=== PATIENT | male | born 1955 | race Caucasian/White ===

== ENCOUNTER 2020-06-14 12:54 | Emergency (ER) | payer OTHER, SELFPAY ==
--- NOTE | ~2020-06-14 | XR_ITS ---
EXAMINATION: XR ribs RT 2V INDICATION: Right chest pain TECHNIQUE: 3 views of the right ribs were obtained. COMPARISON: 01/16/2016 FINDINGS: No displaced rib fracture is identified. The right lung is free of acute opacities. There i s no pleural effusion or pneumothorax. Mild osteoarthritis is noted in the right shoulder IMPRESSION: 1. No displaced rib fracture identified. Reviewed, dictated and finalized at location A. IFIED MEDICAL AIDE
--- NOTE | ~2020-06-14 | XR_ITS ---
EXAMINATION: XR elbow RT 2V INDICATION: Right elbow pain TECHNIQUE: Four views of the right elbow are obtained. COMPARISON: None available FINDINGS: There is no fracture, dislocation, or subluxation. The bones, soft tissues, and joint space s are normal. IMPRESSION: 1. No acute osseous abnormality. Reviewed, dictated and finalized at location A. RTISING SALES CONSULTANT
--- NOTE | ~2020-06-14 | XR_ITS ---
EXAMINATION: XR shoulder RT min 2V INDICATION: Right shoulder pain TECHNIQUE: Five views of the right shoulder are submitted. COMPARISON: None FINDINGS: Normal alignment. No fracture. There is mild osteoarthritis of the shoulder. Soft tissues a re unremarkable. IMPRESSION: 1. Mild osteoarthritis. Reviewed, dictated and finalized at location A. ICULTURE SUPERINTENDENT IMPRESSION: 1. Mild osteoarthritis.
[2020-06-14 13:17] VITALS: BP 143/96; PULSE 66; RESP 16; TEMP 37; O2SAT 98
--- NOTE | 2020-06-14 14:05 | ED.FALL ---
HPI - Fall General Chief Complaint: Fall Stated Complaint: fall, arm/shoulder pain Time Seen by Provider: 06/14/20 13:13 Source: patient Mode of arrival: ambulatory Limitations: no limitations History of Present Illness HPI Narrative: 65-year-old with no major medical problems here with complaints of fall but 9 days ago here with complaints of right shoulder, right rib and right elbow pain which has been progressively getting worse from the time of fall. He denies any shortness of breath. He complains of increasing pain with movement in the elbow area mostly Onset (ago): day(s) (9) Fall from: down stairs (#) Fall witnessed: yes, by family Place fall occurred: home Loss of consciousness: none Symptoms prior to fall: none Context: tripped/slipped Location of injury: chest Location of injury - extremities: Right: shoulder and elbow Severity: moderate Severity scale (1-10): 3 Quality: aching Associated symptoms (after fall): denies Related Data Allergies Allergy/AdvReac Type Severity Reaction Status Date / Time NKDA Allergy Mild Uncoded 09/26/07 08:41 Review of Systems Review of Systems: All systems reviewed & are unremarkable except as noted in HPI and below Constitutional: Constitutional: Reports no additional constitutional complaints Eyes: Eyes: Reports no additional eye complaints Cardiovascular: Cardiovascular: Reports no additional cardiovascular complaints Respiratory: Respiratory: Reports no additional respiratory complaints Gastrointestinal: Gastrointestinal: Reports no additional gastrointestinal complaints Musculoskeletal: Musculoskeletal: Reports as per HPI [facility] Family History Family History Grandparent Family history of heart disease in male family member before age 55 Social History Social History Smoking status: Never smoker Alcohol intake: never Exam Narrative: Exam Narrative: GENERAL: Well-appearing, well-nourished, and in no acute distress. HEAD: Normocephalic, atraumatic. EYES: PERRLA and EOMI. ENT: Nares clear NECK: Supple. CHEST: Clear to auscultation. No respiratory distress. HEART: Regular rate and rhythm. No murmur heard. Normal peripheral pulses. ABDOMEN: Soft, nontender, nondistended, normal active bowel sounds. EXTREMITIES: No edema. No obvious evidence of trauma externally normal range of motion in the right shoulder and in the elbow SKIN: Warm, dry, no rash. NEURO: No focal deficits. Alert and oriented x3. PSYCH: Normal mood and affect. Course Vital Signs Vital signs: Vital Signs Temperature 37.0 C 06/14/20 13:17 Pulse Rate 66 06/14/20 13:17 Respiratory Rate 16 06/14/20 13:17 Blood Pressure 143/96 H 06/14/20 13:17 Pulse Oximetry 98 06/14/20 13:17 Temperature 37.0 C 06/14/20 13:17 Pulse Rate 66 06/14/20 13:17 Respiratory Rate 16 06/14/20 13:17 Blood Pressure 143/96 H 06/14/20 13:17 Pulse Oximetry 98 06/14/20 13:17 MDM - Fall MDM Narrative Medical decision making narrative: Inform patient about his x-ray findings. Advised him to continue his home pain medication . Imaging Data Radiologist's impression: ITS Impressions Shoulder X-Ray 06/14/20 13:48 IMPRESSION: 1. Mild osteoarthritis. Elbow X-Ray 06/14/20 13:50 IMPRESSION: 1. No acute osseous abnormality. Ribs X-Ray 06/14/20 13:53 IMPRESSION: 1. No displaced rib fracture identified. Discharge Plan Discharge Clinical Impression: Contusion of right chest wall, Elbow contusion Patient Disposition: Home, Self-Care Condition: Stable Instructions: Antibiotic Form, Contusion in Adults (ED) Additional Instructions: continue home medications, follow with your doctor. Follow-up/Referrals: PHYSICIAN,SECURITY MANAGEMENT SPECIALIST [Primary Care Provider] - Norman Romero MD [Physician] - Time of Disposition: 14:12
== END 2020-06-14 14:20 | disposition home or self-care (01) ==
LOC: ANHED 14:13
PROVIDERS: Emergency Provider Family Medicine; PCP Family Medicine
DX: S50.01XA Contusion of right elbow, initial encounter (principal); S20.211A Contusion of right front wall of thorax, initial encounter; M19.011 Primary osteoarthritis, right shoulder; W10.9XXA Fall (on) (from) unspecified stairs and steps, initial encounter
CPT/HCPCS: 71100; 73030; 73070; 99284

== ENCOUNTER 2023-07-29 08:20 | Emergency (ER) | payer MEDICARE, SELFPAY ==
--- NOTE | 2023-07-29 08:22 | ED.EAR ---
HPI - Ear Problem General Chief complaint: Ear Stated complaint: right ear pain Time Seen by Provider: 07/29/23 08:21 Source: patient Mode of arrival: ambulatory Limitations: no limitations History of Present Illness HPI Narrative: Kenrick is a 68-year-old male patient presenting to the clinic today with complaints of right ear pain times 10 days. He reports pain comes and goes intermittently states of lost time is a dull ache but will become sharp and stabbing at times. Rates his worse pain 7 at 10. No fever or chills. Denies any loss of hearing. Has chronic allergies. Related Data Home Medications Medication Instructions Recorded Confirmed atorvastatin 40 mg tablet 40 mg PO DAILY 08/27/22 07/29/23 lisinopril 20 mg tablet 20 mg PO DAILY 08/27/22 07/29/23 sildenafil 100 mg tablet (Viagra) 100 mg PO DAILY 08/27/22 07/29/23 Allergies Allergy/AdvReac Type Severity Reaction Status Date / Time No Known Allergies Allergy Verified 07/29/23 08:34 Review of Systems Review of Systems: Pertinent positives per HPI. Patient denies any fever, chills, rash, headache, visual changes, dizziness, cough, shortness of breath, chest pain, palpitations, nausea, vomiting, diarrhea, constipation, abdominal pain, or any urinary issues. [facility] Family History Family History Grandparent Family history of heart disease in male family member before age 55 Social History Social History Smoking status: Former smoker Alcohol intake: never Comments At the time of my signature, I reviewed and agree with the nursing past medical, surgical, social, and family history. There is no relevant family history pertinent to the patient complaint. Exam Narrative: General: Well-developed, well nourished, in no apparent distress Head: Normocephalic, atraumatic Eyes: Pupils equally round and reactive to light bilaterally, EOM intact, sclera and conjunctive clear, no discharge, lids normal Ears: Left tMs intact and clear, right TM intact, slightly bulging, fluid noted behind TM ear canals clear, no drainage, grossly hearing normal. Nose: Nares patent, clear discharge, no inflammation, no sinus tenderness. Mouth: Oral pharynx without lesions or masses, good dentition, MMM. Neck: Supple, trachea midline, no enlargement of anterior or posterior cervical nodes, no thyroid masses or goiter palpable. Cardio: Regular rate and rhythm, s1 and s2 normal, no murmur appreciated. Resp: Clear to auscultation bilaterally, no rhonchi, rales, wheezing or rubs Course Course Emergency Course: Portions of this record may have been created with voice recognition software. Level of Care: Express Care Visit Vital Signs Vital signs: Vital signs reviewed Medical Decision Making MDM Narrative Medical decision making narrative: At the time of visit patient is resting comfortably on the exam table. Patient appears to be nontoxic. I suspect patient has serous otitis to the right ear. Prescription for prednisone was sent to the pharmacy. Supportive measures were discussed with the patient and they voiced understanding discharge instructions and agrees to treatment plan. Return precautions reviewed Differential Diagnosis Differential Diagnosis: Otitis media, otitis externa, eustachian tube dysfunction, cerumen impaction, serous otitis, upper respiratory infection Discharge Plan Discharge Clinical Impression: Acute serous otitis media Qualifiers: Laterality: left Recurrence: non-recurrent Qualified Code(s): H65.02 - Acute serous otitis media, left ear Patient Disposition: Home, Self-Care Condition: Stable Instructions: Antibiotic Form, Fluid In The Ear (Serous Otitis Media) (ED) Additional Instructions: Take any prescribed medications only as directed-prednisone Flonase and OTC antihistimine such as Zyrtec/Claritin Tyle
[2023-07-29 08:39] VITALS: BP 153/76; PULSE 84; RESP 16; TEMP 36.3; O2SAT 99
== END 2023-07-29 08:51 | disposition home or self-care (01) ==
PROVIDERS: Emergency Provider Nurse Practitioner Family; PCP Physician Assistant
DX: H65.01 Acute serous otitis media, right ear (principal); Z87.891 Personal history of nicotine dependence
CPT/HCPCS: 99213; G0463

== ENCOUNTER 2023-12-01 15:13 | Outpatient (CLI) | payer MEDICARE, MEDICAID, SELFPAY ==
--- NOTE | 2023-12-01 | ECG_ITS ---
SEE SCANNED COPY FOR CONFIRMED REPORT MTDD
[2023-12-01 15:47] LABS: Anion Gap 9 mmol/L (4-12); Blood Urea Nitrogen 18 mg/dL (9-20); Calcium 9.8 mg/dL (8.4-10.2); Carbon Dioxide 26 mmol/L (22-30); Chloride 102 mmol/L (98-107); Estimated Glomerular Filt Rate > 60; Glucose 111 mg/dL (65-110); Sodium 137 mmol/L (137-145)
== END 2023-12-01 15:14 | disposition home or self-care (01) ==
LOC: ANHLAB 15:16
PROVIDERS: PCP Physician Assistant; Visit Provider Nurse Anesthetist, Certified Registered
DX: Z01.818 Encounter for other preprocedural examination (principal)
CPT/HCPCS: 36415; 80048; 93005

== ENCOUNTER 2024-10-03 02:38 | Day surgery (SDC) | payer MEDICARE, MEDICAID, SELFPAY ==
[2024-09-19 11:11] VITALS: BMI 35.9
--- OUTSIDE RECORDS SUMMARY | 2024-10-03 02:41 | XMS_ITS | Clinical Summary ---
Author Organization [facility] Address [address], [facility] [address] [place] [address] Phone Care Team Providers Care Evp Chief Exploration Officer Name Role Phone Sergio Caballero MD Primary Care Provider Anastasia prince Allergies No known active allergies Medications Multiple Vitamin (MULTI-VITAMIN PO) Take by mouth. Active VITAMIN D PO Take by mouth. Active lisinopril (PRINIVIL, ZESTRIL) 20 MG Tablet Take 20 mg by mouth daily. Active atorvastatin (LIPITOR) 40 MG Tablet Take 40 mg by mouth daily. Active sildenafil citrate (VIAGRA) 100 MG Tablet Take 100 mg by mouth as needed. Active Active Problems No known active problems Family History Relation Name Status Comments Father Mother Social History Tobacco Use Types Packs/Day Years Used Date Smoking Tobacco: Never Smokeless Tobacco: Never Tobacco Cessation:Counseling Given: Not Answered Alcohol Use Standard Drinks/Week Comments Not Currently 0 (1 standard drink = 0.6 oz pur e alcohol) Sex and Gender Information Value Date Recorded Sex Assigned at Not on file Legal Sex Male 1:54 PM CDT Gender Identity Not on file Sexual Orientation Not on file Last Filed Vital Signs Vital Sign Reading Time Taken Comments Blood Pressure 124/80 05/20/2023 9:32 AM CDT Pulse 59 05/20/2023 9:32 AM CDT Temperature 36.4 C (97.5 F) 05/20/2023 9:32 AM CDT Respiratory Rate 18 05/20/2023 9:32 AM CDT Oxygen Saturation 96% 05/20/2023 9:3 2 AM CDT Inhaled Oxygen Concentration - - Weight 116 kg (255 lb 11.2 oz) 05/20/2023 9:32 AM CDT BMI incorrect due to technical error Height 180.3 cm (5' 11 ) 05/20/2023 9:3 2 AM CDT BMI incorrect due to technical error Body Mass Index 35.66 05/20/2023 9:32 AM CDT Plan of Treatment Health Maintenance Due Date Last Done Comments Hepatitis C Virus (HCV) Screening 1957 Colonoscopy 2002 Colorectal Cancer Screening 2002 Cologuard 2007 Immunochemical Fecal Occult Blood 2007 Pneumococcal Immunization (5 0+ years) (1 of 1 - PCV) 2007 Zoster Immunization (1 of 2) 2007 Influenza Immunization (#1) 2024 SARS-COV-2 Immunization ( - season) 2024 08/12/2021, 01/07/2021, 12/09/2020 Respiratory Syncytial Virus (RSV) Immunization (Adult) (1 - 1-dose 75+ series) 01/24/2032 DTaP/Tdap/Td Immunization Discontinued 11/15/2018 TdaP Immunization Completed 11/15/2018 PSA Discussion Completed 05/06/2023 Hepatitis B Immunization Aged Out No longer eligible based on patient's age to complete this topic Meningococcal Immunization (ACWY) Aged Out No longer eligible based on patient's age to complete this topic Rotavirus Immunization Aged Out No lo nger eligible based on patient's age to complete this topic Procedures Procedure Name Priority Date/Time Associated Diagnosis Comments PSA DIAGNOSTIC,TOTAL Routine 05/06/2023 9:18 AM CDT Prostate cancer (HCC) from Last 3 Months or Most Recently Relevant to Health Maintenance Results * (ABNORMAL) PSA DIAGNOSTIC,TOTAL (05/06/2023 9:18 AM CDT) PSA 7.03(H) 0.00 - 4.00 ng/mL [facility] Comment: Jg Paramagnetic Particle Chemiluminescent Immunoassay Method Blood 05/06/2023 9:18 AM CDT Narrative [facility] - 05/06/2023 3:08 PM CDT Release to patient->Immediate us Tomas Mullins MD CHEMISTRY ORDERABLES Final Resul t [facility] [address] [place] [id number], [place] [phone] from Last 3 Months or Most Recently Relevant to Health Maintenance Insurance MEDICARE MEDICAID [place] Care Teams Evp Chief Exploration Officer Relationship Specialty Start Date End Date Sergio Caballero MD PCP - General Family Medicine 04/24/23
--- OUTSIDE RECORDS SUMMARY | 2024-10-03 02:41 | XMS_ITS | Clinical Summary ---
Author Organization [facility] Address [address] [place] [address] Care Team Providers Care Supply Chain Vice President Name Role Phone Stephan Odell DO Primary Care Provider Source Comments [facility],non-owned Affiliates and Associated Physician Practices is amultiple site organization consisting of ambulatory clinics and hospital sitesin [place], [place], [place] and [place]. This disclosure is being madepursuant to the Care Everywhere program and may not contain all information available regarding this patient. Last updated 18.[facility] Allergies No known active allergies Medications * Be aware that medications may not be up to date on this document. Alwaysverify current medications with the patient. Medication Sig Dispensed Refills Start Date End Date Status gabapentin (NEURONTIN) 600 MG tablet Take 600 mg by mouth 3 times daily 12/22/2018 Active meloxicam (MOBIC) 15 MG tabletIndications:DIS H (diffuse idiopathic skeletal hyperostosis),Primary osteoarthritis of both hips,Encounter for long-term (current) use of high-risk medication,Encounter for therapeutic drug monitoring Take 1 tablet by mouth once daily 90 tablet 1 12/23/2018 Active mirabegron ER 24hr (MYRBETRIQ) 50 MG tablet Take 1 tablet by mouth once daily 30 tablet 09/02/2019 Active Additional Information Patient not taking.Reported on 07/08/2021 DULoxetine (CYMBALTA) 60 MG capsule Take 60 mg by mouth once daily Active Active Problems Problem Noted Date Diagnosed Date Liver problem 05/03/2018 Overview (05/12/2018): U[facility] within normallimits Primary osteoarthritis of both hips 03/11/2018 Encounter for long-term (cur rent) use of high-risk medication 03/11/2018 Mid back pain 12/17/2017 Other fatigue 12/17/2017 Chronic pain of left knee 12/17/2017 Polyarthralgia 11/09/2017 Low back pain 11/09/2017 Other chronic pain 11/09/2017 Dorsalgia 11/09/2017 Thoracic radiculopathy 07/22/2017 Family History Medical History Relation Name Comments Cancer - Prostate Paternal Grandfather CAD (Coronary Artery Disease) Paternal Grandmother Relation Name Status Comments Paternal Grandfather Paternal Grandmother Social History Tobacco Use Types Packs/Day Years Used Date Smoking Tobacco: Former Cigarettes Q uit: 08/10/2013 Smokeless Tobacco: Never Tobacco Cessation:Counseling Given: No Alcohol Use Standard Drinks/Week Comments No 0 (1 standard drink = 0.6 oz pur e alcohol) Sex and Gender Information Value Date Recorded Sex Assigned at Not on file Gender Identity Not on file Sexual Orientation Not on file Last Filed Vital Signs Vital Sign Reading Time Taken Comments Blood Pressure 120/75 07/08/2021 9:48 AM SALESFORCE ADMINISTRATOR Pulse 59 07/08/2021 9:48 AM SALESFORCE ADMINISTRATOR Temperature 36.2 C (97.2 F) 10/10/2019 10:09 AM SALESFORCE ADMINISTRATOR Respiratory Rate 14 05/03/2018 3:18 PM CDT Oxygen Saturation 95% 07/08/2021 9:48 AM SALESFORCE ADMINISTRATOR Inhaled Oxygen Concentration - - Weight 95.7 kg (211 lb) 07/08/2021 9:48 AM SALESFORCE ADMINISTRATOR Height 180.3 cm (5' 11 ) 07/08/2021 9:48 AM SALESFORCE ADMINISTRATOR Body Mass Index 29.43 07/08/2021 9:48 AM SALESFORCE ADMINISTRATOR Plan of Treatment Health Maintenance Due Date Last Done Comments COLOGUARD (AGES 45-75) - COL ON CA SCREENING 1957 COLON MONITORING 1957 COLONOSCOPY - COLON CA SCREENING 1957 CT COLONOGRAPHY - COLON CA SCREENING 1957 Colorectal Cancer Screening 1957 FIT - COLON CA SCREENING 1957 FLEX SIG - COLON CA SCREENING 1957 LIPID TESTING 1957 MEDICARE AWV 12 MONTHS 1957 DTAP/TDAP/TD VACCINES (1 - Tdap) 01/24/1976 PNEUMOCOCCAL VACCINE 50+ (1 of 1 - PCV) 2007 ZOSTER VACCINE (1 of 2) 2007 Respiratory Syncytial Virus (RSV) Vaccine Pt: or over 60 yrs (1 - Risk 60-74 years 1-dose series) 2017 AAA SCREENING 2022 COVID-19 VACCINE (1 - 2023-2 5 season) 2024 INFLUENZA VACCINE (#1) 2024 DEPRESSION SCREENING 08/10/2024 HEPATITIS C SCREENING Completed 05/03/2018 , 12/17/2017 HEPATITIS B VACCINE Aged Out No longe r eligible based on patient's age to complete this topic HIB VACCINE Aged Out No longer eligi ble based on patient's age to complete this topic HPV VACCINE Aged Out No longer eligi ble based on patient's age to complete this topic MENINGOCOCCAL (Group B) VACCINE Aged Out No longer eligible b ased on patient's age to complete this topic MENINGOCOCCAL VACCINE Aged Out No yosef rakesh eligible based on patient's age to complete this topic Procedures Procedure Name Priority Date/Time Associated Diagnosis Comments HEPATITIS C RNA QUANTITATIVE Routine 05/03/2018 4:13 PM CDT Hepatitis C antibody test positive from Last 3 Months or Most Recently Relevant to Health Maintenance Results * HEPATITIS C RNA QUANTITATIVE (05/03/2018 4:13 PM CDT) Hepatitis C RNA PCR, Interp Not Detected Not Detected 05/07/2018 8:04 AM CDT [facility] Blood BLOOD SPECIMEN / Unknown Lab Venipuncture / Unknown 05/03/2018 4:13 PM CDT 05/03/2018 4:17 PM CDT Narrative [facility] - 05/07/2018 8:04 AM CDT The Hepatitis C viral (HCV) RNA analysis utilized a serum sample, real-time reverse fur dry cleaner PCR, and is reported as Not Detected, Detected (<12 IU/mL), Quantity (IU/mL) or >100,000,000 IU/mL. The limit of quantitation of the assay is 12 IU/mL (100% of samples with this HCV RNA level were detected). The linear range is from 12 IU/mL to 100,000,000 IU/mL. Values less than 12 IU/mL are reported as Detected (<12 IU/mL). Values greater than 100,000,000 IU/mL are reported as > 100,000,000 IU/mL. The detection/quantitation of HCV RNA in serum is based on the isolation of HCV RNA with reverse fur dry cleaner of genomic HCV RNA followed by real-time PCR in the presence of an unrelated RNA internal control. The internal control ensures that RNA is isolated, and that no general significant inhibitors of the RT-PCR process are present. The analysis was performed using a U.S. FDA approved test methodology ([employer] Real Time HCV). Sarah Christian VETERINARIAN HELPER-FIELD COLLECTOR LAB - CHEMIS TRY ORDERABLES [facility] [address] [phone] from Last 3 Months or Most Recently Relevant to Health Maintenance Care Teams Supply Chain Vice President Relationship Specialty Start Date End Date Stephan Odell DO [facility] - General 05/25/17
--- OUTSIDE RECORDS SUMMARY | 2024-10-03 02:41 | XMS_ITS | Clinical Summary ---
Author Organization [facility] Address [address] [place] [address] Care Team Providers Care Long Filler Cigar Roller Machine Name Role Phone Sergio Caballero MD Primary Care Provider [phone] Allergies No known active allergies Medications MELOXICAM 15 MG tabletIndications :Thoracic radiculopathy TAKE 1 TABLET BY MOUTH ONCE DAILY. APPOINTMENT WITH NEW PROVIDER NEEDED FOR FUTURE REFILLS. CALL [phone] TO SCHEDULE 30 tablet 0 Active gabapentin 300 MG capsuleIndication s:Thoracic radiculopathy TAKE 2 CAPSULES BY MOUTH THREE TIMES DAILY. PT NEEDS AN APPOINTMENT FOR ADDITIONAL REFILLS 180 capsule 0 Active Active Problems Problem Noted Date Diagnosed Date Thoracic radiculopathy 07/22/2017 Immunizations Name Administration Dates Next Due Tdap (Historical Only-select from [facility] glass) 11/15/2018 Family History Medical History Relation Comments Prostate Cancer Paternal Grandfather Heart Attack Paternal Grandmother Relation Status Comments Father Alive Paternal Grandfather Paternal Grandmother Social History Tobacco Use Types Packs/Day Years Used Date Smoking Tobacco: Never Smokeless Tobacco: Never Alcohol Use Standard Drinks/Week Comments No 0 (1 standard drink = 0.6 oz pur e alcohol) Sex and Gender Information Value Date Recorded Sex Assigned at Not on file Legal Sex Male 7:08 PM CDT Gender Identity Not on file Sexual Orientation Not on file Last Filed Vital Signs Vital Sign Reading Time Taken Comments Blood Pressure 122/76 04/26/2019 2:33 PM CDT Pulse 54 04/26/2019 2:33 PM CDT Temperature 36.9 C (98.4 F) 04/26/2019 2:33 PM CDT Respiratory Rate 14 04/26/2019 2:33 PM CDT Oxygen Saturation 97% 04/26/2019 2:33 PM CDT Inhaled Oxygen Concentration - - Weight 105.2 kg (232 lb) 04/26/2019 2:33 PM CDT Height 180.3 cm (5' 11 ) 01/10/2019 1:24 PM CDT Body Mass Index 32.36 01/10/2019 1:24 PM CDT Plan of Treatment Health Maintenance Due Date Last Done Comments Zoster Vaccines (1 of 2) 2007 Pneumococcal Vaccine: 65+ Years (1 of 1 - PCV) 2022 COVID-19 Vaccine (1 - season) 2024 Influenza Adult (#1) 2024 Colorectal Cancer Screening Colonoscopy (10 Years) 10/15/2026 10/14/2016 DTaP, Tdap and Td Vaccines (2 - Td or Tdap) 11/15/2028 11/15/2018 RSV Immunization or 60+ Years (1 - 1-dose 75+ series) 01/24/2032 Hepatitis C Completed 04/05/2018, 03/11, 12/20/2016, Additional history exists Meningococcal B Vaccine Aged Out No l onger eligible based on patient's age to complete this topic Meningococcal Vaccine Aged Out No yosef rakesh eligible based on patient's age to complete this topic RSV Immunizations Under 20 Months Aged Out No longer eligible based on patient's age to complete this topic Procedures Procedure Name Priority Date/Time Associated Diagnosis Comments COLONOSCOPY GENERIC (SCAN ORDER) Routine 10/14/2016 12:00 AM EDUCATION LIAISON HEPATITIS C ANTIBODY Routine 09/24/2016 7:20 AM EDUCATION LIAISON from Last 3 Months or Most Recently Relevant to Health Maintenance Results * COLONOSCOPY (10/14/2016 12:00 AM EDUCATION LIAISON) 10/14/2016 us Documents Scanned SCANNING Final Result [facility] * (ABNORMAL) HEPATITIS C ANTIBODY (09/24/2016 7:20 AM EDUCATION LIAISON) HEPATITIS C AB REACTIVE TESTING PERFORMED AT [facility] [address] [place] [address] SPECIMEN RESPUN RESULTS CONFIRMED-KEE T REPEATED (A) NR [facility] TO EPIC CONVERSION 09/24/2016 7:20 AM EDUCATION LIAISON 09/24/2016 7:20 AM EDUCATION LIAISON Narrative [facility] TO EPIC CONVERSION - 09/25/2016 7:38 PM EDUCATION LIAISON Result Communication: No patient communication needed at this time Stephan Odell DO LABORATORY Final Result [facility] TO EPIC CONVERSION from Last 3 Months or Most Recently Relevant to Health Maintenance Insurance [employer] Care Teams Long Filler Cigar Roller Machine Relationship Specialty Start Date End Date Sergio Caballero MD PCP - General FAMILY PRACTICE 12/14/19
--- OUTSIDE RECORDS SUMMARY | 2024-10-03 02:41 | XMS_ITS | Encounter Summary ---
Author Organization [facility] Address [address] [place] [address] Care Team Providers Care Behavioral Psychologist Name Role Phone Stephan Odell DO Primary Care Provider Reason for Visit * Reason Comments Refill Request Encounter Details Date Type Department Care Team (Late st Contact Info) Description 05/26/2018 Refill [facility] [address] [place] [address] Davy Cary MD [address] [id number] Refill Request Social History Tobacco Use Types Packs/Day Years Used Date Smoking Tobacco: Former Cigarettes Q uit: 08/10/2013 Smokeless Tobacco: Never Alcohol Use Standard Drinks/Week Comments No 0 (1 standard drink = 0.6 oz pur e alcohol) Sex and Gender Information Value Date Recorded Sex Assigned at Not on file Gender Identity Not on file Sexual Orientation Not on file documented as of this encounter Plan of Treatment Not on file documented as of this encounter Visit Diagnoses Not on filedocumented in this encounter Care Teams Behavioral Psychologist Relationship Specialty Start Date End Date Stephan Odell DO PCP - General 05/25/17 documented as of this encounter
--- OUTSIDE RECORDS SUMMARY | 2024-10-03 02:41 | XMS_ITS | Patient Health Summary ---
Author Organization [facility] Address [address] [place] [address] Care Team Providers Care Investment Banking Manager Name Role Phone Stephan Odell Primary Care Provider Note from [facility],non-owned Affiliates and Associated Physician Practices is amultiple site organization consisting of ambulatory clinics and hospital sitesin [place], [place], [place] and [place]. This disclosure is being madepursuant to the Care Everywhere program and may not contain all information available regarding this patient. Last updated 18.[facility] Allergies No known active allergies Medications * Be aware that medications may not be up to date on this document. Alwaysverify current medications with the patient. * gabapentin (NEURONTIN) 600 MG tablet(Started 12/22/2018) Take 600 mg by mouth 3 times daily * meloxicam (MOBIC) 15 MG tablet(Started 12/23/2018) Take 1 tablet by mouth once daily 1 refill remaining * mirabegron ER 24hr (MYRBETRIQ) 50 MG tablet(Started 09/02/2019) Take 1 tablet by mouth once daily * DULoxetine (CYMBALTA) 60 MG capsule Take 60 mg by mouth once daily Active Problems Problem Noted Date Diagnosed Date Liver problem 05/03/2018 Primary osteoarthritis of both hips 03/11/2018 Encounter for long-term (cur rent) use of high-risk medication 03/11/2018 Mid back pain 12/17/2017 Other fatigue 12/17/2017 Chronic pain of left knee 12/17/2017 Polyarthralgia 11/09/2017 Low back pain 11/09/2017 Other chronic pain 11/09/2017 Dorsalgia 11/09/2017 Thoracic radiculopathy 07/22/2017 Social History Tobacco Use Types Packs/Day Years [...] Comments Blood Pressure 120/75 07/08/2021 9:48 AM POLICE LIAISON OFFICER Pulse 59 07/08/2021 9:48 AM POLICE LIAISON OFFICER Temperature 36.2 C (97.2 F) 10/10/2019 10:09 AM POLICE LIAISON OFFICER Respiratory Rate 14 05/03/2018 3:18 PM CDT Oxygen Saturation 95% 07/08/2021 9:48 AM POLICE LIAISON OFFICER Inhaled Oxygen Concentration - - Weight 95.7 kg (211 lb) 07/08/2021 9:48 AM POLICE LIAISON OFFICER Height 180.3 cm (5' 11 ) 07/08/2021 9:48 AM POLICE LIAISON OFFICER Body Mass Index 29.43 07/08/2021 9:48 AM POLICE LIAISON OFFICER Procedures * MRI PELVIS RECTAL PROTOCOL WWO CONT(Performed 07/08/2021) Performed for Prostate cancer (HCC) * PSA SERIAL(Performed 07/08/2021) Performed for Prostate cancer (HCC) * CREATININE - POCT INTERFACED(Performed 07/08/2021) * PATHOLOGY TISSUE(Performed 10/10/2019) Performed for Prostate cancer (HCC) * NV ECHO,TRANSRECTAL(Performed 10/10/2019) Performed for Prostate cancer (HCC) * NV US GUIDED NEEDLE PLACEMENT(Performed 10/10/2019) Performed for Prostate cancer (HCC) * NV BIOPSY OF PROSTATE,NEEDLE/PUNCH(Performed 10/10/2019) Performed for Prostate cancer (HCC) * LAB RESULTS ORDER(Performed 09/29/2019) * PSA SERIAL(Performed 09/28/2019) * PSA SERIAL(Performed 05/27/2019) Performed for Prostate cancer (HCC) * URINALYSIS AUTO - POINT OF CARE (AMB) [facility](Performed 05/27/2019) Performed for UTI symptoms * MRI THORACIC SPINE WO CONTRAST(Performed 04/25/2019) Performed for Mid back pain * MRI PELVIS RECTAL PROTOCOL WWO CONT(Performed 11/09/2018) Performed for Prostate cancer (HCC) * CREATININE BLOOD - POCT (IP) [facility](Performed 11/09/2018) Performed for Prostate cancer (HCC) * PSA SERIAL(Performed 06/28/2018) Performed for Prostate cancer (HCC) * HEPATITIS C RNA QUANTITATIVE(Performed 05/03/2018) Performed for Hepatitis C antibody test positive * COMPREHENSIVE METABOLIC PANEL(Performed 05/03/2018) Performed for Hepatitis C antibody test positive * CBC W AUTO DIFFERENTIAL(Performed 05/03/2018) Performed for Hepatitis C antibody test positive * SCLERODERMA 70 (SCL) ANTIBODY(Performed 12/17/2017) Performed for Arthralgia of hip, unspecified laterality, Mid back pain, Other chronic pain, Myalgia, Other fatigue, Chronic pain of left knee * SS-B (SJOGREN'S) ANTIBODY(Performed 12/17/2017) Performed for Arthralgia of hip, unspecified laterality, Mid back pain, Other chronic pain, Myalgia, Other fatigue, Chronic pain of left knee * SS-A (SJOGREN'S) ANTIBODY(Performed 12/17/2017) Performed for Arthralgia of hip, unspecified laterality, Mid back pain, Other chronic pain, Myalgia, Other fatigue, Chronic pain of left knee * MISHRA (SM) ANTIBODY RAFIQ(Performed 12/17/2017) Performed for Arthralgia of hip, unspecified laterality, Mid back pain, Other chronic pain, Myalgia, Other fatigue, Chronic pain of left knee * MANAGER STATISTICAL PROGRAMMING ANTIBODY(Performed 12/17/2017) Performed for Arthralgia of hip, unspecified laterality, Mid back pain, Other chronic pain, Myalgia, Other fatigue, Chronic pain of left knee * RHEUMATOID FACTOR BLOOD QUANTITATIVE(Performed 12/17/2017) Performed for Arthralgia of hip, unspecified laterality, Mid back pain, Other chronic pain, Myalgia, Other fatigue, Chronic pain of left knee * HLA TYPING B27(Performed 12/17/2017) Performed for Arthralgia of hip, unspecified laterality, Mid back pain, Other chronic pain, Myalgia, Other fatigue, Chronic pain of left knee * HISTONE ANTIBODY(Performed 12/17/2017) Performed for Arthralgia of hip, unspecified laterality, Mid back pain, Other chronic pain, Myalgia, Other fatigue, Chronic pain of left knee * DNA ANTIBODY DS CRITHIDIA TITER(Performed 12/17/2017) Performed for Arthralgia of hip, unspecified laterality, Mid back pain, Other chronic pain, Myalgia, Other fatigue, Chronic pain of left knee * COMPLEMENT C4(Performed 12/17/2017) Performed for Arthralgia of hip, unspecified laterality, Mid back pain, Other chronic pain, Myalgia, Other fatigue, Chronic pain of left knee * COMPLEMENT C3(Performed 12/17/2017) Performed for Arthralgia of hip, unspecified laterality, Mid back pain, Other chronic pain, Myalgia, Other fatigue, Chronic pain of left knee * CHROMATIN ANTIBODY(Performed 12/17/2017) Performed for Arthralgia of hip, unspecified laterality, Mid back pain, Other chronic pain, Myalgia, Other fatigue, Chronic pain of left knee * ADA BLOOD SCREEN W/REFLEX TITER(Performed 12/17/2017) Performed for Arthralgia of hip, unspecified laterality, Mid back pain, Other chronic pain, Myalgia, Other fatigue, Chronic pain of left knee * URIC ACID BLOOD(Performed 12/17/2017) Performed for Arthralgia of hip, unspecified laterality, Mid back pain, Other chronic pain, Myalgia, Other fatigue, Chronic pain of left knee * CK BLOOD(Performed 12/17/2017) Performed for Arthralgia of hip, unspecified laterality, Mid back pain, Other chronic pain, Myalgia, Other fatigue, Chronic pain of left knee * TSH(Performed 12/17/2017) Performed for Arthralgia of hip, unspecified laterality, Mid back pain, Other chronic pain, Myalgia, Other fatigue, Chronic pain of left knee * T4 FREE(Performed 12/17/2017) Performed for Arthralgia of hip, unspecified laterality, Mid back pain, Other chronic pain, Myalgia, Other fatigue, Chronic pain of left knee * HEPATITIS C ANTIBODY(Performed 12/17/2017) Performed for Arthralgia of hip, unspecified laterality, Mid back pain, Other chronic pain, Myalgia, Other fatigue, Chronic pain of left knee * HEPATITIS B SURFACE ANTIGEN W RFLX CONFIRMATION(Performed 12/17/2017) Performed for Arthralgia of hip, unspecified laterality, Mid back pain, Other chronic pain, Myalgia, Other fatigue, Chronic pain of left knee * C-REACTIVE PROTEIN(Performed 12/17/2017) Performed for Arthralgia of hip, unspecified laterality, Mid back pain, Other chronic pain, Myalgia, Other fatigue, Chronic pain of left knee * ERYTHROCYTE SEDIMENTATION RATE(Performed 12/17/2017) Performed for Arthralgia of hip, unspecified laterality, Mid back pain, Other chronic pain, Myalgia, Other fatigue, Chronic pain of left knee * COMPREHENSIVE METABOLIC PANEL(Performed 12/17/2017) Performed for Arthralgia of hip, unspecified laterality, Mid back pain, Other chronic pain, Myalgia, Other fatigue, Chronic pain of left knee * CBC W AUTO DIFFERENTIAL(Performed 12/17/2017) Performed for Arthralgia of hip, unspecified laterality, Mid back pain, Other chronic pain, Myalgia, Other fatigue, Chronic pain of left knee * XR SI JOINTS 3VW OR MORE(Performed 12/17/2017) Performed for Arthralgia of hip, unspecified laterality, Mid back pain, Other chronic pain, Myalgia, Other fatigue, Chronic pain of left knee * XR THORACIC SPINE 3VW(Performed 12/17/2017) Performed for Arthralgia of hip, unspecified laterality, Mid back pain, Other chronic pain, Myalgia, Other fatigue, Chronic pain of left knee * XR PELVIS W BILAT HIP 2VW(Performed 12/17/2017) Performed for Arthralgia of hip, unspecified laterality, Mid back pain, Other chronic pain, Myalgia, Other fatigue, Chronic pain of left knee * XR KNEE RIGHT 2VW OR LESS(Performed 12/17/2017) Performed for Arthralgia of hip, unspecified laterality, Mid back pain, Other chronic pain, Myalgia, Other fatigue, Chronic pain of left knee * XR KNEE LEFT 2VW OR LESS(Performed 12/17/2017) Performed for Arthralgia of hip, unspecified laterality, Mid back pain, Other chronic pain, Myalgia, Other fatigue, Chronic pain of left knee * CYCLIC CITRULLINATED PEPTIDE(CCP) AB IGG(Performed 12/17/2017) Performed for Arthralgia of hip, unspecified laterality, Other chronic pain, Dorsalgia, Mid back pain, Other fatigue, Chronic pain of left knee * PSA SERIAL(Performed 09/04/2017) * MRI PELVIS RECTAL PROTOCOL WWO CONT(Performed 07/30/2017) * CREATININE BLOOD - POCT (IP) [facility](Performed 07/30/2017) * XR CERVICAL SPINE 4 OR 5VW(Performed 06/22/2017) * XR LUMBAR SPINE 4VW OR MORE(Performed 06/22/2017) * MRI CERVICAL SPINE WO CONTRAST(Performed 06/22/2017) * PATHOLOGY/GENETICS HISTORICAL-ONBASE(Performed 02/11/2017) * URINALYSIS - POINT OF CARE (AMB) [facility](Performed 02/09/2017) * PATHOLOGY/GENETICS HISTORICAL-ONBASE(Performed 11/25/2016) * PATHOLOGY/GENETICS HISTORICAL-ONBASE(Performed 11/25/2016) * PATHOLOGY/GENETICS HISTORICAL-ONBASE(Performed 11/25/2016) Results * MRI PELVIS MALE WWO CONTRAST (07/08/2021 9:21 AM POLICE LIAISON OFFICER) Only the most recent of3 resultswithin the time period is included. Anatomical Region Laterality Modality Pelvis Magnetic Resonan ce 07/08/2021 4:55 PM POLICE LIAISON OFFICER Impressions 07/08/2021 5:20 PM POLICE LIAISON OFFICER IMPRESSION: Benign prostatic hyperplasia changes. No suspicious nodules or masses seen in the prostate. PI RADS category 2. Compared with the previous MRI examination there is no significant change is noted in the current study. This report was electronically signed by EJ ADLER MD, FRCR on 07/08/2021 5:20 PM . Narrative 07/08/2021 5:20 PM POLICE LIAISON OFFICER Examination: MRI PELVIS MALE WWO CONTRAST Date: 07/08/2021 9:22 AM Indications: C61: Prostate cancer Comparison: 11/09/2018. Technique: Multiplanar, multisequence imaging of the pelvis in accordance with PI-RADS recommendations before and after intravenous administration of 15 mL of MultiHance at 2 mL/s on a [employer] platform. Dedicated 3 plane 20 cm FOV FSE T2, axial diffusion-weighted imaging with the b values 50, 400 and 1000 and calculated b = 1400 sec/mm2 and ADC map, and axial 3-D dynamic contrast-enhanced T1-weighted imaging with 10 seconds temporal resolution were acquired using 3 mm slice thickness in addition to full pelvis post contrast T1-weighted imaging axial and sagittal sequences. Coronal HASTE and sagittal T2 of entire pelvis and precontrast axial T1-weighted images were also obtained. FINDINGS: Size: 4.6 x 3.6 x 4.0 cm and approximate volume is 35 mL Quality:Images are diagnostic quality Hemorrhage:None Peripheral zone: T2:Linear or wedge-shaped hypointensity or diffuse mild hypointensity, usually indistinct margin DWI:No abnormality on ADC and high b-valueDWI Transitional zone: T2: A mostly encapsulated nodule OR a homogeneous circumscribed nodule without encapsulation. DWI:No abnormality on ADC and high b-valueDWI DCE: No abnormal focal enhancement is seen in the perinephric or transition zone. Lesion: No suspicious nodules identified. Lesion overall PI RADS: 2 Neurovascular bundle:None. Seminal vesicles:Unremarkable. Lymph nodes:No significantly enlarged pelvic lymph nodes. Bones:No focal bony lesions identified. Other pelvic organs:Unremarkable. Others: Small bilateral inguinal lymph nodes noted. Procedure Note Ej Adler MD - 07/08/2021 Examination: MRI PELVIS MALE WWO CONTRAST Date: 07/08/2021 9:22 AM Indications: C61: Prostate cancer Comparison: 11/09/2018. Technique: Multiplanar, multisequence imaging of the pelvis inaccordance with PI-RADS recommendations before and after intravenous administration of 15 mL of MultiHance at 2 mL/s on a [employer] platform. Dedicated 3 plane 20 cm FOV FSE T2, axial diffusion-weighted imaging with the b values 50, 400 and 1000 and calculated b = 1400 sec/mm2 and ADC map, and axial 3-D dynamic contrast-enhanced T1-weighted imaging with 10 seconds temporal resolution were acquired using 3 mm slice thickness in addition to full pelvis post contrast T1-weighted imaging axial and sagittal sequences. Coronal HASTE and sagittal T2 of entire pelvis and precontrast axial T1-weighted images were also obtained. FINDINGS: Size: 4.6 x 3.6 x 4.0 cm and approximate volume is 35 mL Quality:Images are diagnostic quality Hemorrhage:None Peripheral zone: T2:Linear or wedge-shaped hypointensity or diffuse mild hypointensity, usually indistinct margin DWI:No abnormality on ADC and high b-valueDWI Transitional zone: T2: A mostly encapsulated nodule OR a homogeneous circumscribed nodule without encapsulation. DWI:No abnormality on ADC and high b-valueDWI DCE: No abnormal focal enhancement is seen in the perinephric or transition zone. Lesion: No suspicious nodules identified. Lesion overall PI RADS: 2 Neurovascular bundle:None. Seminal vesicles:Unremarkable. Lymph nodes:No significantly enlarged pelvic lymph nodes. Bones:No focal bony lesions identified. Other pelvic organs:Unremarkable. Others: Small bilateral inguinal lymph nodes noted. IMPRESSION: Benign prostatic hyperplasia changes. No suspicious nodules or massesseen in the prostate. PI RADS category 2. Compared with the previous MRI examination there is no significantchange is noted in the current study. This report was electronically signed by EJ ADLER MD, [facility] on 07/08/2021 5:20 PM . Av Marcelo MD MR ORDERABLES * (ABNORMAL) PSA SERIAL (07/08/2021 9:17 AM POLICE LIAISON OFFICER) Only the most recent of5 resultswithin the time period is included. PSA Total 7.4(H) 0.0 - 4.0 ng/mL 07/08/2021 10:49 AM POLICE LIAISON OFFICER [facility] Blood BLOOD SPECIMEN / Unknown Lab Venipuncture / Unknown 07/08/2021 9:17 AM POLICE LIAISON OFFICER 07/08/2021 10:05 AM POLICE LIAISON OFFICER Av Marcelo MD LAB - CHEMISTRY OR DERABLES [facility] [address] [place] [address], [facility] [phone] * CREATININE - POCT INTERFACED (07/08/2021 8:05 AM POLICE LIAISON OFFICER) Pathologist [facility] Creatinine POCT 0.81 0.30 - 1.30 mg/dL 07/08/2021 3:36 PM POLICE LIAISON OFFICER [facility] eGFR >60 >60 mL/min/1.7 3 m2 07/08/2021 3:36 PM [facility] Blood BLOOD SPECIMEN / Unknown 07/08/2021 8:05 AM POLICE LIAISON OFFICER 07/08/2021 3:36 PM POLICE LIAISON OFFICER Av Marcelo MD LAB - POINT OF CAR E ORDERABLES [address] [address], [facility] [phone] * PATHOLOGY TISSUE (10/10/2019 12:44 PM POLICE LIAISON OFFICER) Case Report Surgical Pathology Report Case: [id number] Authorizing Provider: Av Marcelo MD Collected: 10/10/2019 12:44 PM Ordering Location: [facility] Urology Received: 10/10/2019 02:33 PM Pathologist: Tiffany Carias Mai, DO Specimens: A) - Prostate, Left Lateral [place], Biopsy B) - Prostate, Left Lateral Mid, Biopsy C) - Prostate, Left Lateral Base, Biopsy D) - Prostate, Left Mid [place], Biopsy E) - Prostate, Left Mid Mid, Biopsy F) - Prostate, Left Mid Base, Biopsy G) - Prostate, Right Mid [place], Biopsy H) - Prostate, Right Mid Mid, Biopsy I) - Prostate, Right Mid Base, Biopsy J) - Prostate, Right Lateral [place], Biopsy K) - Prostate, Right Lateral Mid, Biopsy L) - Prostate, Right Lateral Base, Biopsy 10/13/2019 7:54 PM POLICE LIAISON OFFICER [facility] Final Diagnosis Prostate, left lateral apex, biopsy (A): - Benign prostatic parenchyma. Prostate, left lateral mid, biopsy (B): - Prostatic adenocarcinoma, [place] score 3+3= 6 (Grade group 1). - 1/1 core involved, approximately 10% of tissue. Prostate, left lateral base, biopsy (C): - Benign prostatic parenchyma. Prostate, left mid apex, biopsy (D): - Benign prostatic parenchyma. Prostate, left mid mid, biopsy (E): - Benign prostatic parenchyma with focal chronic inflammation. Prostate, left mid base, biopsy (F): - Benign prostatic parenchyma. Prostate, right mid apex, biopsy (G): - Benign prostatic parenchyma. Prostate, right mid mid, biopsy (H): - Benign prostatic parenchyma with small focus of high-grade prostatic intraepithelial neoplasia. Prostate, right mid base, biopsy (I): - Benign prostatic parenchyma with focal chronic inflammation. Prostate, right lateral apex, biopsy (J): - Benign prostatic parenchyma. - Benign rectal mucosa. Prostate, right lateral mid, biopsy (K): - Benign prostatic parenchyma with focal chronic inflammation. Prostate, right lateral base, biopsy (L): - Benign prostatic parenchyma. - Benign rectal mucosa. 10/13/2019 7:54 PM [facility] Microscopic Description and Comment Microscopic examination substantiates final diagosis. IHC staining was done at [facility] with adequate controls. Part J shows no overexpression of AMACR and HMWCK highlights the basal cells. VH/DS 10/13/2019 7:54 PM [facility] Clinical History Patient is a 64-year-old male with prior history of cT1c prostate cancer now with elevation of PSA from 5.2 to 8.2 by underwent prostate biopsy. 10/13/2019 7:54 PM [facility] Gross Description The requisition and specimen(s) are identified with the patient's name, Kenrick Wyatt. Received in formalin, specimen A, L LA , is a 1.1 x 0.1 x 0.1 cm magallanes-white core, submitted in toto in cassette A1. Received in formalin, specimen B, LLM , is a 1.5 x 0.1 x 0.1 cm magallanes-white core, submitted in toto in cassette B1. Received in formalin, specimen C, LLB , is a 1.4 x 0.1 x 0.1 cm magallanes-white core, submitted in toto in cassette C1. Received in formalin, specimen D, LMA , is a 2.0 x 0.1 x 0.1 cm magallanes-white core, submitted in toto in cassette D1. Received in formalin, specimen E, LMM , is a 1.3 x 0.1 x 0.1 cm magallanes-white core, submitted in toto in cassette E1. Received in formalin, specimen F, LMB , is a 1.2 x 0.1 x 0.1 cm magallanes-white core, submitted in toto in cassette F1. Received in formalin, specimen G, RMA , is a 1.0 x 0.1 x 0.1 cm magallanes-white core, submitted in toto in cassette G1. Received in formalin, specimen H, RMM , is a 1.0 x 0.1 x 0.1 cm magallanes-white core, submitted in toto in cassette H1. Received in formalin, specimen I, RMB , is a 1.6 x 0.1 x 0.1 cm magallanes-white core, submitted in toto in cassette I1. Received in formalin, specimen J, RLA , is a 1.0 x 0.1 x 0.1 cm magallanes-white core, submitted in toto in cassette J1. Received in formalin, specimen K, RL M , is a 1.5 x 0.1 x 0.1 cm magallanes-white core, submitted in toto in cassette K1. Received in formalin, specimen L, RLB , is a 1.1 x 0.1 x 0.1 cm magallanes-white core, submitted in toto in cassette L1. KK 10/13/2019 7:54 PM [facility] Disclaimer The performance characteristics of all immunohistochemical and indirect immunofluorescence stains (if any) cited in this report were determined by the Histopathology Laboratory of [facility]. Some of these tests were developed by our own laboratory and have not been cleared or approved by the US Food and Drug Administration. The FDA does not require this test to go through premarket FDA review. These tests are used for clinical purposes. They should not be regarded as investigational or for research. This laboratory is certified under the Clinical Laboratory Improvement Amendments (CLIA) as qualified to perform high complexity clinical laboratory testing. This case has been personally reviewed and interpreted by the attending (teaching) pathologist. 10/13/2019 7:54 PM [facility] Embedded Images 10/13/2019 7:54 PM [facility] Pathology/Cytology (Prostate, Left Lateral [place], Biopsy) Collection / Unknown 10/10/2019 12:44 PM POLICE LIAISON OFFICER 10/10/2019 2:33 PM POLICE LIAISON OFFICER Miscellaneous samples (specimen) (Prostate, Left Lateral Mid, Biopsy) Collection / Unknown 10/10/2019 12:44 PM POLICE LIAISON OFFICER 10/10/2019 2:47 PM POLICE LIAISON OFFICER Miscellaneous samples (specimen) (Prostate, Left Lateral Base, Biopsy) 10/10/2019 12:44 PM POLICE LIAISON OFFICER 10/10/2019 2:47 PM POLICE LIAISON OFFICER Miscellaneous samples (specimen) (Prostate, Left Mid [place], Biopsy) 10/10/2019 12:44 PM POLICE LIAISON OFFICER 10/10/2019 2:47 PM POLICE LIAISON OFFICER Miscellaneous samples (specimen) (Prostate, Left Mid Mid, Biopsy) 10/10/2019 12:44 PM POLICE LIAISON OFFICER 10/10/2019 2:47 PM POLICE LIAISON OFFICER Miscellaneous samples (specimen) (Prostate, Left Mid Base, Biopsy) 10/10/2019 12:44 PM POLICE LIAISON OFFICER 10/10/2019 2:47 PM POLICE LIAISON OFFICER Miscellaneous samples (specimen) (Prostate, Right Mid [place], Biopsy) 10/10/2019 12:44 PM POLICE LIAISON OFFICER 10/10/2019 2:47 PM POLICE LIAISON OFFICER Miscellaneous samples (specimen) (Prostate, Right Mid Mid, Biopsy) 10/10/2019 12:44 PM POLICE LIAISON OFFICER 10/10/2019 2:47 PM POLICE LIAISON OFFICER Miscellaneous samples (specimen) (Prostate, Right Mid Base, Biopsy) 10/10/2019 12:44 PM POLICE LIAISON OFFICER 10/10/2019 2:47 PM POLICE LIAISON OFFICER Miscellaneous samples (specimen) (Prostate, Right Lateral [place], Biopsy) 10/10/2019 12:44 PM POLICE LIAISON OFFICER 10/10/2019 2:47 PM POLICE LIAISON OFFICER Miscellaneous samples (specimen) (Prostate, Right Lateral Mid, Biopsy) 10/10/2019 12:44 PM POLICE LIAISON OFFICER 10/10/2019 2:47 PM POLICE LIAISON OFFICER Miscellaneous samples (specimen) (Prostate, Right Lateral Base, Biopsy) 10/10/2019 12:44 PM POLICE LIAISON OFFICER 10/10/2019 2:47 PM POLICE LIAISON OFFICER Av Marcelo MD LAB - PATHOLOGY/CY LUDYOGY ORDERABLES Performing Organization Address [facility]/State/[facility] Co de Phone Number [facility] [address] [phone] * NV BIOPSY OF PROSTATE,NEEDLE/PUNCH, NV US GUIDED NEEDLE PLACEMENT, NV ECHO,TRANSRECTAL (10/10/2019 10:51 AM POLICE LIAISON OFFICER) Narrative Av Marcelo MD - 10/10/2019 10:51 AM POLICE LIAISON OFFICER Av Marcelo MD 10/10/2019 11:28 AM History of Present Illness: The patient is a 64 year old male being seen today as follow-up for Encounter Diagnosis Name Primary? Prostate cancer Yes Additional History: Kenrick Wyatt is a 64 year old male being seen today for follow up regarding cT1c prostate cancer, diagnosed 11/2016, 09/21 cores grade group 1, PSA 5.2. Most recent PSa elevated to 8.2 (see below) Lab Results Component Value Date/Time PSA 8.5 (H) 09/28/2019 12:17 PM PSA 4.7 (H) 05/27/2019 02:36 PM PSA 4.5 (H) 06/28/2018 09:21 AM PSA 4.5 (H) 09/04/2017 10:01 AM Procedure in Detail: Informed consent was obtained and pre-procedure antibiotics were administered. The patient was placed in the left lateral decubitus position (right side up) on the examination table. The patient was then encouraged to assumethe position, allowing the knees to be brought up high toward the chest. Digital rectal examination: small sized prostate, firm over left apex. The ultrasound probe was then inserted per rectum and the prostate visualized. 10 cc of lidocaine was injected at the posterolateral aspects of the prostate bilaterally for analgesia. The prostate was measured at 31 cm3. Following this, a 12 core biopsy of the prostate was performed, obtaining specimens from the medial and lateral apex, mid, and bases bilaterally. The ultrasound probe was then removed and digital tamponade performed. The patient was instructed to remain in the position for 5 minutes post-biopsy to allow for hemostasis. Disposition: The patient is to continue taking their procedural antibiotics as instructed, and will be called in one week to discuss the results of the biopsy. Dr Marcelo was present at the time of procedure. Coiln Dodge MD 10/10/2019 10:54 AM I was present for all moe portions of the procedure. Av Marcelo MD 10/10/2019 11:28 AM Colin Dodge MD PROCEDURE/MINOR SURG ICAL ORDERABLES * LAB RESULTS ORDER (09/29/2019 10:40 AM POLICE LIAISON OFFICER) Narrative 09/29/2019 10:40 AM POLICE LIAISON OFFICER Ordered by an unspecified provider. Scanned Document LAB - THERAPEUTIC DR ALLEN MONITORING ORDERABLES * URINALYSIS AUTO - POINT OF CARE (AMB) [facility] (05/27/2019) Glucose UA - Bilirubin UA POCT - Ketones UA POCT - Specific [place] UA 1.030 Blood Urine POCT - pH UA 6.0 Protein UA - Urobilinogen UA - Nitrite UA - WBC UA - Urine URINE / Unknown 05/27/2019 Jadyn Peterson FLORAL ARRANGER-ASSISTANT FRONT DESK MANAGER LAB - POINT O F CARE ORDERABLES * MRI THORACIC SPINE WO CONTRAST (04/25/2019 2:09 PM CDT) Anatomical Region Laterality Modality Chest Magnetic Resonan ce 04/25/2019 3:49 PM CDT Impressions 04/25/2019 4:00 PM CDT IMPRESSION: 1. Spinal lipomatosis from T1 through T12. There is associated compression of thecal sac at T5-T9 level. 2. No evidence of cord compression or visible neural impingement is identified. This report was electronically signed by FIDEL CORONA on 04/25/2019 4:00 PM . Narrative 04/25/2019 4:00 PM CDT EXAMINATION: MRI THORACIC SPINE WITHOUT CONTRAST HISTORY: Mid thoracic pain. COMPARISON: None. CORRELATION: Thoracic spine radiographs dated 12/17/2017. TECHNIQUE: Multiplanar, multisequence imaging of the thoracic spine was performed without intravenous contrast administration following the standard protocol. FINDINGS: Alignment is stable and remains normal. All the vertebral bodies are normal in heights. No fracture, marrow edema or a malignant marrow replacing process is identified. Scattered small fat-containing hemangiomata are present in T3, T4, T6, T7 and multiple additional segments. Additional heterogeneity of marrow signal intensity is mostly due to benign marrow reconversion. There is a spinal lipomatosis in the dorsal epidural space extending from T1-T2 through the T11-T12 level. The AP diameter of thecal sac is less than 1 cm between T5-T9 suggestive of mild stenosis. The cord is normal in size, contour and signal intensity at all thoracic levels. The counting sequence demonstrates degenerative disc disease of the cervical spine associated with posterior disc osteophyte complexes especially at C4-C5 and C5-C6 without evidence of cord compression. Mild facet osteoarthritis and mild degeneration of the costovertebral articulations are seen at all levels. There is no significant neural foraminal stenosis or visible impingement on the exiting nerves in the neural foramina, throughout the thoracic spine. Procedure Note Fidel Corona MD - 04/25/2019 EXAMINATION: MRI THORACIC SPINE WITHOUT CONTRAST HISTORY: Mid thoracic pain. COMPARISON: None. CORRELATION: Thoracic spine radiographs dated 12/17/2017. TECHNIQUE: Multiplanar, multisequence imaging of the thoracic spine was performed without intravenous contrast administration following the standard protocol. FINDINGS: Alignment is stable and remains normal. All the vertebral bodies are normal in heights. No fracture, marrow edema or a malignant marrow replacing process is identified. Scattered small fat-containing hemangiomata are present in T3, T4, T6, T7 and multiple additional segments. Additional heterogeneity of marrow signal intensity is mostly due to benign marrow reconversion. There is a spinal lipomatosis in the dorsal epidural space extendingfrom T1-T2 through the T11-T12 level. The AP diameter of thecal sac is less than 1 cm between T5-T9 suggestive of mild stenosis. The cord is normal in size, contour and signal intensity at all thoracic levels. The counting sequence demonstrates degenerative disc disease of the cervical spine associated with posterior disc osteophyte complexes especially at C4-C5 and C5-C6 without evidence of cord compression. Mild facet osteoarthritis and mild degeneration of the costovertebral articulations are seen at all levels. There is no significant neural foraminal stenosis or visible impingement on the exiting nerves in the neural foramina, throughout the thoracic spine. IMPRESSION: 1. Spinal lipomatosis from T1 through T12. There is associatedcompression of thecal sac at T5-T9 level. 2. No evidence of cord compression or visible neural impingement is identified. This report was electronically signed by FIDEL CORONA on 04/25/2019 4:00 PM . Job Saunders MD MR ORDERABLES * CREATININE BLOOD - POCT (IP) [facility] (11/09/2018 6:50 PM CDT) Only the most recent of2 resultswithin the time period is included. Creatinine POCT 1.23 0.3 - 1.3 mg/dL [facility] eGFR POCT 60 60 ml/min [facility] Blood BLOOD SPECIMEN / Unknown 11/09/2018 6:50 PM CDT Av Marcelo MD LAB - POINT OF CAR E ORDERABLES [facility] [address] [phone] * HEPATITIS C RNA QUANTITATIVE (05/03/2018 4:13 PM CDT) [facility] Hepatitis C RNA PCR, Interp Not Detected Not Detected 05/07/2018 8:04 AM CDT [facility] Blood BLOOD SPECIMEN / Unknown Lab Venipuncture / Unknown 05/03/2018 4:13 PM CDT 05/03/2018 4:17 PM CDT Narrative [facility] - 05/07/2018 8:04 AM CDT The Hepatitis C viral (HCV) RNA analysis utilized a serum sample, real-time reverse pin or clip fastener PCR, and is reported as Not Detected, [...] the isolation of HCV RNA with reverse pin or clip fastener of genomic HCV RNA followed by real-time PCR in the presence of an unrelated RNA internal control. The internal control ensures that RNA is isolated, and that no general significant inhibitors of the RT-PCR process are present. The analysis was performed using a U.S. FDA approved test methodology (Cast Real Time HCV). Sarah Christian FLORAL ARRANGER-ASSISTANT FRONT DESK MANAGER LAB - CHEMIS TRY ORDERABLES Performing Organization Address City/State/[facility] Co de Phone Number [facility] [address] [phone] * (ABNORMAL) CBC WITH DIFFERENTIAL (05/03/2018 4:13 PM CDT) Only the most recent of2 resultswithin the time period is included. [facility] WBC 8.1 3.5 - 10.5 10 3/uL 05/03/2018 4:33 PM CDT [facility] RBC 4.76 4.30 - 5.70 10 6/uL 05/03/2018 4:33 PM CDT [facility] Hemoglobin 15.0 13.5 - 17.5 g/dL 05/03/2018 4:33 PM [facility] Hematocrit 42.8 39.0 - 50.0 % 05/03/2018 4:33 PM [facility] MCV 89.9 81.0 - 97.0 fL 05/03/2018 4:33 PM [facility] MCH 31.5 28.0 - 34.0 pg 05/03/2018 4:33 PM [facility] MCHC 35.0 32.0 - 36.0 g/dL 05/03/2018 4:33 PM [facility] Platelet Count 186 150 - 400 10 3/uL 05/03/2018 4:33 PM [facility] RDW-SD 41.3 36.0 - 50.0 fL 05/03/2018 4:33 PM [facility] RDW-CV 12.6 11.2 - 14.8 % 05/03/2018 4:33 PM [facility] MPV 10.0 9.3 - 12.8 fL 05/03/2018 4:33 PM [facility] Neutrophils % 57.2 35.0 - 70.0 % 05/03/2018 4:33 PM [facility] Lymphocytes % 28.0 19.7 - 55.1 % 05/03/2018 4:33 PM [facility] Monocytes % 11.1 3.0 - 15.0 % 05/03/2018 4:33 PM [facility] Eosinophils % 3.5 0.0 - 6.0 % 05/03/2018 4:33 PM [facility] Basophil % 0.2 0.0 - 1.5 % 05/03/2018 4:33 PM [facility] Neutrophils Absolute 4.6 1.6 - 7.0 10 3/uL 05/03/2018 4:33 PM [facility] Lymphocyte Absolute 2.3 0.8 - 2.9 10 3/uL 05/03/2018 4:33 PM [facility] Monocytes Absolute 0.89(H) 0.14 - 0.66 10 3/uL 05/03/2018 4:33 PM [facility] Eosinophils Absolute 0.28(H) 0.00 - 0.22 10 3/uL 05/03/2018 4:33 PM [facility] Basophils Absolute 0.02 0.00 - 0.06 10 3/uL 05/03/2018 4:33 PM [facility] Immature Granulocytes % 0.1 0.0 - 1.0 % 05/03/2018 4:33 PM [facility] Blood BLOOD SPECIMEN / Unknown Lab Venipuncture / Unknown 05/03/2018 4:13 PM CDT 05/03/2018 4:18 PM CDT Sarah Christian FLORAL ARRANGER-ASSISTANT FRONT DESK MANAGER LAB - HEMATO LOGY ORDERABLES [facility] [address] [phone] * (ABNORMAL) COMPREHENSIVE METABOLIC PANEL (05/03/2018 4:13 PM CDT) Only the most recent of2 resultswithin the time period is included. BUN 29(H) 7 - 26 mg/dL 05/03/2018 4:38 PM [facility] Creatinine 1.0 0.6 - 1.2 mg/dL 05/03/2018 4:38 PM [facility] Sodium 135(L) 136 - 145 mmol/L 05/03/2018 4:38 PM [facility] Potassium 4.1 3.5 - 4.5 mmol/L 05/03/2018 4:38 PM [facility] Chloride 101 98 - 107 mmol/L 05/03/2018 4:38 PM [facility] CO2 27 22 - 29 mmol/L 05/03/2018 4:38 PM [facility] Glucose 97 70 - 115 mg/dL 05/03/2018 4:38 PM [facility] Calcium 9.5 8.4 - 10.2 mg/dL 05/03/2018 4:38 PM [facility] Protein Total 7.1 6.0 - 8.3 g/dL 05/03/2018 4:38 PM [facility] Albumin 3.9 3.4 - 5.0 g/dL 05/03/2018 4:38 PM CDT [facility] Bilirubin Total 0.5 0.2 - 1.2 mg/dL 05/03/2018 4:38 PM [facility] Alkaline Phosphatase 92 40 - 150 Units/L 05/03/2018 4:38 PM [facility] ALT 14 0 - 55 Units/L 05/03/2018 4:38 PM [facility] AST 15 5 - 34 Units/L 05/03/2018 4:38 PM [facility] Anion Gap 11 8 - 18 05/03/2018 4:38 PM [facility] BUN/Creatinine Ratio 29(H) 7 - 23 05/03/2018 4:38 PM [facility] Osmolality Calculated 286 270 - 300 mOsm/kg 05/03/2018 4:38 PM [facility] Albumin/Globulin Ratio 1.2 1.1 - 2.3 05/03/2018 4:38 PM [facility] eGFR >60 >60 mL/min/1.7 3 m2 05/03/2018 4:38 PM [facility] Blood BLOOD SPECIMEN / Unknown Lab Venipuncture / Unknown 05/03/2018 4:13 PM CDT 05/03/2018 4:18 PM CDT Sarah Christian FLORAL ARRANGER-ASSISTANT FRONT DESK MANAGER LAB - CHEMIS TRY ORDERABLES [address] [phone] * CHROMATIN ANTIBODY (12/17/2017 4:31 PM CDT) Antichromatin Antibodies <0.2 0.0 - 0.9 AI 12/18/2017 12:18 PM CDT [facility] ([facility]) Blood BLOOD SPECIMEN / Unknown Lab Venipuncture / Unknown 12/17/2017 4:31 PM CDT 12/17/2017 4:55 PM CDT Narrative [facility] ([facility]) - 12/18/2017 12:18 PM CDT Performed at: [address] [place] [address] [id number] Hospital Coder: Sha Wilhelm PhD, Phone: [phone] Katarzyna Fuller MD LAB - SEROLOGY ORDERABLES [facility] ([facility]) [address] [place] [address] * DNA ANTIBODY DS CRITHIDIA TITER (12/17/2017 4:31 PM CDT) dsDNA Antibody IgG <1:10 <1:10 2017 10:42 PM CDT [facility] [employer] ([facility]) Comment: INTERPRETIVE INFORMATION: Double-Stranded DNA (dsDNA) Antibody, IgG by IFA (using Crithidia luciliae) Positivity for anti-double stranded DNA (anti-dsDNA) IgG antibody is a diagnostic criterion of systemic lupus erythematosus (SLE). The presence of the anti-dsDNA IgG antibody is identified by IFA titer (Crithidia luciliae indirect fluorescent test [KIAN]). KIAN is highly specific for SLE with a sensitivity of 50-60 percent. Some patients with early or inactive SLE may be positive for anti-dsDNA IgG by KAMERON but negative by KIAN. If the KIAN result is negative but the patient has a positive KAMERON and clinical suspicion remains, consider antinuclear antibody (ADA) testing by IFA. Additional information and recommendations for testing may be found at [email or web address]. Performed by [facility], [address] [place] [address] [email or web address], Bryce Ness MD, Lab. Director Blood BLOOD SPECIMEN / Unknown Lab Venipuncture / Unknown 12/17/2017 4:31 PM CDT 12/17/2017 4:56 PM CDT Katarzyna Fuller MD LAB - SEROLOGY ORDERABLES [employer] ([facility]) [address] * URIC ACID BLOOD (12/17/2017 4:31 PM CDT) Uric Acid 5.2 2.6 - 7.2 mg/dL 12/17/2017 5:24 PM CDT [facility] Blood BLOOD SPECIMEN / Unknown Lab Venipuncture / Unknown 12/17/2017 4:31 PM CDT 12/17/2017 4:55 PM CDT Katarzyna Fuller MD LAB - CHEMISTR Y ORDERABLES Performing Organization Address [facility]/ZIP Co de Phone Number [address] [phone] * MISHRA (SM) ANTIBODY RAFIQ (12/17/2017 4:31 PM CDT) Mishra Antibody 4.0 0.0 - 19.9 Units 12/18/2017 11:58 AM CDT [facility] Comment: RAFIQ Antibody Numeric Result Interpretation: <20.0 Units: Negative 20.0 - 39.0 Units: Weakly Positive >39.0 Units: Positive Blood BLOOD SPECIMEN / Unknown Lab Venipuncture / Unknown 12/17/2017 4:31 PM CDT 12/17/2017 4:56 PM CDT Katarzyna Fuller MD LAB - CHEMISTR Y ORDERABLES Performing Organization Address [facility] Co de Phone Number [address] [phone] * MANAGER STATISTICAL PROGRAMMING ANTIBODY (12/17/2017 4:31 PM CDT) SM/MANAGER STATISTICAL PROGRAMMING Antibody 2.1 0.0 - 19.9 Units 12/18/2017 11:58 AM T [facility] Comment: RAFIQ Antibody Numeric Result Interpretation: <20.0 Units: Negative 20.0 - 39.0 Units: Weakly Positive >39.0 Units: Positive Blood BLOOD SPECIMEN / Unknown Lab Venipuncture / Unknown 12/17/2017 4:31 PM CDT 12/17/2017 4:56 PM CDT Katarzyna Fuller MD LAB - CHEMISTR Y ORDERABLES [address] [phone] * RHEUMATOID FACTOR BLOOD QUANTITATIVE (12/17/2017 4:31 PM CDT) Rheumatoid Factor <15 <30 IU/mL 12/17/2017 5:21 PM CDT [facility] Blood BLOOD SPECIMEN / Unknown Lab Venipuncture / Unknown 12/17/2017 4:31 PM CDT 12/17/2017 4:56 PM CDT Katarzyna Fuller MD LAB - CHEMISTR Y ORDERABLES [address] [phone] * C-REACTIVE PROTEIN (12/17/2017 4:31 PM CDT) Pathologist [facility] C-Reactive Protein <0.5 <=0.5 mg/dL 12/17/2017 5:36 PM CDT [facility] Blood BLOOD SPECIMEN / Unknown Lab Venipuncture / Unknown 12/17/2017 4:31 PM CDT 12/17/2017 4:56 PM CDT Katarzyna Fuller MD LAB [place] [address], [facility] [phone] * ADA BLOOD SCREEN W/REFLEX TITER (12/17/2017 4:31 PM CDT) ADA Negative 12/19/2017 2:09 PM CDT [facility] ([facility]) Comment: Negative <1:80 Borderline 1:80 Positive >1:80 Blood BLOOD SPECIMEN / Unknown Lab Venipuncture / Unknown 12/17/2017 4:31 PM CDT 12/17/2017 4:55 PM CDT Narrative [facility] ([facility]) - 12/19/2017 2:09 PM CDT Performed at: [facility] [id number] Hospital Coder: Sha Wilhelm PhD, Phone: [phone] Katarzyna Fuller MD LAB - CHEMISTR Y ORDERABLES Performing Organization Address [facility] Co de Phone Number [facility] ([facility]) [address] [place] [address], [facility] * HLA TYPING B27 (12/17/2017 4:31 PM CDT) HLA-B27 Negative Negative 12/19/2017 11:02 AM CDT [facility] [employer] ([facility]) Comment: INTERPRETIVE INFORMATION: HLA-B27 HLA-B27 is a serologically defined allele of the human HLA-B locus. The presence of the HLA-B27 antigen is strongly associated with ankylosing spondylitis and related disorders. Test developed and characteristics determined by [facility]. See Compliance Statement B: [employer]/ Performed by [facility], [address] [place] [address] [email or web address], Bryce Ness MD, Lab. Director Blood BLOOD SPECIMEN / Unknown Lab Venipuncture / Unknown 12/17/2017 4:31 PM CDT 12/17/2017 4:55 PM CDT Katarzyna Fuller MD LAB - CHEMISTR Y ORDERABLES Performing Organization Address [facility] Co de Phone Number [facility]) [address] [place] [address] * (ABNORMAL) HISTONE ANTIBODY (12/17/2017 4:31 PM CDT) Anti-Histone Antibody 1.1(H) 0.0 - 0.9 Units 12/22/2017 12:16 PM CDT [facility] ([facility]) Comment: Negative <1.0 Weak Positive 1.0 - 1.5 Moderate Positive 1.6 - 2.5 Strong Positive >2.5 Blood BLOOD SPECIMEN / Unknown Lab Venipuncture / Unknown 12/17/2017 4:31 PM CDT 12/17/2017 4:56 PM CDT Narrative [facility] ([facility]) - 12/22/2017 12:16 PM CDT Performed at: - [address] [id number] Hospital Coder: Chato Gregory MD, Phone: [phone] Katarzyna Fuller MD LAB - CHEMISTR Y ORDERABLES [facility] ([facility]) [address] [place] [address] * SS-B (SJOGRENS'S) ANTIBODY (12/17/2017 4:31 PM CDT) SS-B LA Antibody 11.7 0.0 - 19.9 Units 12/18/2017 11:58 AM CDT [facility] Comment: RAFIQ Antibody Numeric Result Interpretation: <20.0 Units: Negative 20.0 - 39.0 Units: Weakly Positive >39.0 Units: Positive Blood BLOOD SPECIMEN / Unknown Lab Venipuncture / Unknown 12/17/2017 4:31 PM CDT 12/17/2017 4:55 PM CDT Katarzyna Fuller MD LAB - CHEMISTR Y ORDERABLES Performing Organization Address [facility]/ZIP Co de Phone Number [address] [phone] * SS-A (SJOGREN'S) ANTIBODY (12/17/2017 4:31 PM CDT) SS-A (Ro) Antibody 2.5 0.0 - 19.9 Units 12/18/2017 11:58 AM CDT [facility] Comment: RAFIQ Antibody Numeric Result Interpretation: <20.0 Units: Negative 20.0 - 39.0 Units: Weakly Positive >39.0 Units: Positive Blood BLOOD SPECIMEN / Unknown Lab Venipuncture / Unknown 12/17/2017 4:31 PM CDT 12/17/2017 4:55 PM CDT Katarzyna Fuller MD LAB - CHEMISTR Y ORDERABLES [address] [phone] * SCLERODERMA 70 (SCL) ANTIBODY (12/17/2017 4:31 PM CDT) SCL-70 Antibody 2.7 0.0 - 19.9 Units 12/18/2017 11:58 AM CDT [facility] Comment: RAFIQ Antibody Numeric Result Interpretation: <20.0 Units: Negative 20.0 - 39.0 Units: Weakly Positive >39.0 Units: Positive Blood BLOOD SPECIMEN / Unknown Lab Venipuncture / Unknown 12/17/2017 4:31 PM CDT 12/17/2017 4:55 PM CDT Katarzyna Fuller MD LAB - CHEMISTR Y ORDERABLES [address] [phone] * ERYTHROCYTE SEDIMENTATION RATE (12/17/2017 4:31 PM CDT) Pathologist [facility] Erythrocyte Sedimentation Rate Westergren 4 0 - 20 MM/HR 12/17/2017 5:22 PM CDT [facility] Blood BLOOD SPECIMEN / Unknown Lab Venipuncture / Unknown 12/17/2017 4:31 PM CDT 12/17/2017 4:55 PM CDT Katarzyna Fuller MD LAB - HEMATOLO GY ORDERABLES [address] [phone] * COMPLEMENT C4 (12/17/2017 4:31 PM CDT) Complement C4 24 15 - 57 mg/dL 12/17/2017 5:42 PM CDT [facility] Blood BLOOD SPECIMEN / Unknown Lab Venipuncture / Unknown 12/17/2017 4:31 PM CDT 12/17/2017 4:55 PM CDT Katarzyna Fuller MD LAB - SEROLOGY ORDERABLES Performing Organization Address City/[facility]/ZIP Co de Phone Number [address] [phone] * HEPATITIS B SURFACE ANTIGEN W RFLX CONFIRMATION (12/17/2017 4:31 PM CDT) Pathologist [facility] Hepatitis B Virus Surface Antigen Non-reacti ve Non-reacti ve 12/17/2017 5:58 PM CDT [facility] Blood BLOOD SPECIMEN / Unknown Lab Venipuncture / Unknown 12/17/2017 4:31 PM CDT 12/17/2017 4:55 PM CDT Katarzyna Fuller MD LAB - CHEMISTR Y ORDERABLES Performing Organization Address [facility]/ZIP Co de Phone Number [address] [phone] * CK BLOOD (12/17/2017 4:31 PM CDT) Pathologist [facility] CK Total 80 30 - 200 Units/L 12/17/2017 5:24 PM CDT [facility] Blood BLOOD SPECIMEN / Unknown Lab Venipuncture / Unknown 12/17/2017 4:31 PM CDT 12/17/2017 4:55 PM CDT Katarzyna Fuller MD LAB - CHEMISTR Y ORDERABLES Performing Organization Address [facility] [place] [place] [address], [facility] [phone] * TSH (12/17/2017 4:31 PM CDT) Pathologist [facility] TSH 1.174 0.350 - 4.940 uIU/mL 12/17/2017 5:44 PM CDT [facility] Blood BLOOD SPECIMEN / Unknown Lab Venipuncture / Unknown 12/17/2017 4:31 PM CDT 12/17/2017 4:55 PM CDT Katarzyna Fuller MD LAB - CHEMISTR Y ORDERABLES [address] [phone] * T4 FREE (12/17/2017 4:31 PM CDT) [facility] T4 Free 1.0 0.7 - 1.5 ng/dL 12/17/2017 8:13 PM CDT [facility] Blood BLOOD SPECIMEN / Unknown Lab Venipuncture / Unknown 12/17/2017 4:31 PM CDT 12/17/2017 4:56 PM CDT Katarzyna Fuller MD LAB - CHEMISTR Y ORDERABLES Performing Organization Address [facility]/ZIP Co de Phone Number [address] [phone] * (ABNORMAL) HEPATITIS C ANTIBODY (12/17/2017 4:31 PM CDT) [facility] Hepatitis C Antibody Reactive( A) Non-react vincenzo 12/17/2017 6:03 PM CDT [facility] Comment: Hepatitis C Antibody screen is consistent with past or current infection with Hepatitis C Virus. Nucleic Acid Test (MARINO) for Hepatitis C Viral RNA should be performed for initial HCV workup, and for differentiating active/chronic infection from resolved infection. Blood BLOOD SPECIMEN / Unknown Lab Venipuncture / Unknown 12/17/2017 4:31 PM CDT 12/17/2017 4:56 PM CDT Katarzyna Fuller MD LAB - CHEMISTR Y ORDERABLES [address] [phone] * COMPLEMENT C3 (12/17/2017 4:31 PM CDT) [facility] Complement C3 115 82 - 193 mg/dL 12/17/2017 5:42 PM CDT [facility] Blood BLOOD SPECIMEN / Unknown Lab Venipuncture / Unknown 12/17/2017 4:31 PM CDT 12/17/2017 4:55 PM CDT Katarzyna Fuller MD LAB - CHEMISTR Y ORDERABLES [address] [phone] * XR KNEE RIGHT 2VW OR LESS (12/17/2017 4:19 PM CDT) Anatomical Region Laterality Modality Lower Extremity Radiographic Carey ging 12/18/2017 8:19 AM CDT Impressions 12/18/2017 9:21 AM CDT IMPRESSION: 1. Minimal degenerative changes of the hips bilaterally. 2. Borderline narrowing of the medial compartments of the knees. 3. Normal sacroiliac joints. Dictated by Diaz White MD (finance vice president). This report was approved by Diaz White M.D. on 12/18/2017 9:15 AM . I, Dr. LAUREN MORAES M.D. have personally reviewed and interpreted this examination/study. This report was electronically signed by LAUREN MORAES M.D. on 12/18/2017 9:21 AM . Narrative 12/18/2017 9:21 AM CDT EXAMINATION: XR KNEE LEFT 2VW OR LESS, XR SI JOINTS 3VW OR MORE, XR PELVIS W BILAT HIP 2VW, XR KNEE RIGHT 2VW OR LESS HISTORY: M25.559: Arthralgia of hip, unspecified laterality M54.9: Mid back pain G89.29: Other chronic pain M79.1: Myalgia R53.83: Other fatigue M25.562: Chronic pain of left knee G89.29: Chronic pain of left knee COMPARISON: Comparison is made with MR pelvis dated 07/30/2017. FINDINGS: Right knee: The osseous structures are intact and well aligned without acute fracture or dislocation. There is borderline narrowing of the medial compartment. No joint effusion is seen. A patellar enthesophyte is present. Bone density is normal. Left knee: The osseous structures are intact and well aligned without acute fracture or dislocation. There is borderline narrowing of the medial compartment. No joint effusion is seen. Pelvis: No acute fracture is identified. The femoral heads appear well-seated within their respective acetabula. The pubic symphysis is intact. Mild degenerative changes of the hip joints are seen with minimal osteophyte formation but relative preservation of joint spaces. The sacroiliac joints are normal. Bone density is normal. Sacroiliac joints: Joint spaces are preserved. There is no erosion or bone production. Bone density is normal. Procedure Note Lauren Moraes MD - 12/18/2017 EXAMINATION: XR KNEE LEFT 2VW OR LESS, XR SI JOINTS 3VW OR MORE, XRPELVIS W BILAT HIP 2VW, XR KNEE RIGHT 2VW OR LESS HISTORY: M25.559: Arthralgia of hip, unspecified laterality M54.9: Mid back pain G89.29: Other chronic pain M79.1: Myalgia R53.83: Other fatigue M25.562: Chronic pain of left knee G89.29: Chronic pain of left knee COMPARISON: Comparison is made with MR pelvis dated 07/30/2017. FINDINGS: Right knee: The osseous structures are intact and well aligned without acutefracture or dislocation. There is borderline narrowing of the medial compartment. No joint effusion is seen. A patellar enthesophyte is present. Bone density is normal. Left knee: The osseous structures are intact and well aligned without acutefracture or dislocation. There is borderline narrowing of the medial compartment. No joint effusion is seen. Pelvis: No acute fracture is identified. The femoral heads appear well-seated within their respective acetabula. The pubic symphysis is intact. Mild degenerative changes of the hip joints are seen with minimal osteophyte formation but relative preservation of joint spaces. The sacroiliacjoints are normal. Bone density is normal. Sacroiliac joints: Joint spaces are preserved. There is no erosion or bone production. Bone density is normal. IMPRESSION: 1. Minimal degenerative changes of the hips bilaterally. 2. Borderline narrowing of the medial compartments of the knees. 3. Normal sacroiliac joints. Dictated by Diaz White MD (finance vice president). This report was approved by Diaz White M.D. on 12/18/2017 9:15 AM. I, Dr. LAUREN MORAES M.D. have personally reviewed and interpreted this examination/study. This report was electronically signed by LAUREN MORAES M.D. on 12/18/2017 9:21 AM . Katarzyna Fuller MD DIAGNOSTIC CAREY GING ORDERABLES * XR KNEE LEFT 2VW OR LESS (12/17/2017 4:19 PM CDT) Anatomical Region Laterality Modality Lower Extremity Radiographic Carey ging 12/18/2017 8:19 AM CDT Impressions 12/18/2017 9:21 AM CDT IMPRESSION: 1. Minimal degenerative changes of the hips bilaterally. 2. Borderline narrowing of the medial compartments of the knees. 3. Normal sacroiliac joints. Dictated by Diaz White MD (finance vice president). This report was approved by Diaz White M.D. on 12/18/2017 9:15 AM . I, Dr. LAUREN MORAES M.D. have personally reviewed and interpreted this examination/study. This report was electronically signed by LAUREN MORAES M.D. on 12/18/2017 9:21 AM . Narrative 12/18/2017 9:21 AM CDT EXAMINATION: XR KNEE LEFT 2VW OR LESS, XR SI JOINTS 3VW OR MORE, XR PELVIS W BILAT HIP 2VW, XR KNEE RIGHT 2VW OR LESS HISTORY: M25.559: Arthralgia of hip, unspecified laterality M54.9: Mid back pain G89.29: Other chronic pain M79.1: Myalgia R53.83: Other fatigue M25.562: Chronic pain of left knee G89.29: Chronic pain of left knee COMPARISON: Comparison is made with MR pelvis dated 07/30/2017. FINDINGS: Right knee: The osseous structures are intact and well aligned without acute fracture or dislocation. There is borderline narrowing of the medial compartment. No joint effusion is seen. A patellar enthesophyte is present. Bone density is normal. Left knee: The osseous structures are intact and well aligned without acute fracture or dislocation. There is borderline narrowing of the medial compartment. No joint effusion is seen. Pelvis: No acute fracture is identified. The femoral heads appear well-seated within their respective acetabula. The pubic symphysis is intact. Mild degenerative changes of the hip joints are seen with minimal osteophyte formation but relative preservation of joint spaces. The sacroiliac joints are normal. Bone density is normal. Sacroiliac joints: Joint spaces are preserved. There is no erosion or bone production. Bone density is normal. Procedure Note Lauren Moraes MD - 12/18/2017 EXAMINATION: XR KNEE LEFT 2VW OR LESS, XR SI JOINTS 3VW OR MORE, XRPELVIS W BILAT HIP 2VW, XR KNEE RIGHT 2VW OR LESS HISTORY: M25.559: Arthralgia of hip, unspecified laterality M54.9: Mid back pain G89.29: Other chronic pain M79.1: Myalgia R53.83: Other fatigue M25.562: Chronic pain of left knee G89.29: Chronic pain of left knee COMPARISON: Comparison is made with MR pelvis dated 07/30/2017. FINDINGS: Right knee: The osseous structures are intact and well aligned without acutefracture or dislocation. There is borderline narrowing of the medial compartment. No joint effusion is seen. A patellar enthesophyte is present. Bone density is normal. Left knee: The osseous structures are intact and well aligned without acutefracture or dislocation. There is borderline narrowing of the medial compartment. No joint effusion is seen. Pelvis: No acute fracture is identified. The femoral heads appear well-seated within their respective acetabula. The pubic symphysis is intact. Mild degenerative changes of the hip joints are seen with minimal osteophyte formation but relative preservation of joint spaces. The sacroiliacjoints are normal. Bone density is normal. Sacroiliac joints: Joint spaces are preserved. There is no erosion or bone production. Bone density is normal. IMPRESSION: 1. Minimal degenerative changes of the hips bilaterally. 2. Borderline narrowing of the medial compartments of the knees. 3. Normal sacroiliac joints. Dictated by Diaz White MD (finance vice president). This report was approved by Diaz White M.D. on 12/18/2017 9:15 AM. I, Dr. LAUREN MORAES M.D. have personally reviewed and interpreted this examination/study. This report was electronically signed by LAUREN MORAES M.D. on 12/18/2017 9:21 AM . Katarzyna Fuller MD DIAGNOSTIC CAREY GING ORDERABLES * XR PELVIS W BILAT HIP 2VW (12/17/2017 4:19 PM CDT) Anatomical Region Laterality Modality Pelvis, Lower Extremity [facility] 12/18/2017 8:19 AM CDT Impressions 12/18/2017 9:21 AM CDT IMPRESSION: 1. Minimal degenerative changes of the hips bilaterally. 2. Borderline narrowing of the medial compartments of the knees. 3. Normal sacroiliac joints. Dictated by Diaz White MD (finance vice president). This report was approved by Diaz White M.D. on 12/18/2017 9:15 AM . I, Dr. LAUREN MORAES M.D. have personally reviewed and interpreted this examination/study. This report was electronically signed by LAUREN MORAES M.D. on 12/18/2017 9:21 AM . Narrative 12/18/2017 9:21 AM CDT EXAMINATION: XR KNEE LEFT 2VW OR LESS, XR SI JOINTS 3VW OR MORE, XR PELVIS W BILAT HIP 2VW, XR KNEE RIGHT 2VW OR LESS HISTORY: M25.559: Arthralgia of hip, unspecified laterality M54.9: Mid back pain G89.29: Other chronic pain M79.1: Myalgia R53.83: Other fatigue M25.562: Chronic pain of left knee G89.29: Chronic pain of left knee COMPARISON: Comparison is made with MR pelvis dated 07/30/2017. FINDINGS: Right knee: The osseous structures are intact and well aligned without acute fracture or dislocation. There is borderline narrowing of the medial compartment. No joint effusion is seen. A patellar enthesophyte is present. Bone density is normal. Left knee: The osseous structures are intact and well aligned without acute fracture or dislocation. There is borderline narrowing of the medial compartment. No joint effusion is seen. Pelvis: No acute fracture is identified. The femoral heads appear well-seated within their respective acetabula. The pubic symphysis is intact. Mild degenerative changes of the hip joints are seen with minimal osteophyte formation but relative preservation of joint spaces. The sacroiliac joints are normal. Bone density is normal. Sacroiliac joints: Joint spaces are preserved. There is no erosion or bone production. Bone density is normal. Procedure Note Lauren Moraes MD - 12/18/2017 EXAMINATION: XR KNEE LEFT 2VW OR LESS, XR SI JOINTS 3VW OR MORE, XRPELVIS W BILAT HIP 2VW, XR KNEE RIGHT 2VW OR LESS HISTORY: M25.559: Arthralgia of hip, unspecified laterality M54.9: Mid back pain G89.29: Other chronic pain M79.1: Myalgia R53.83: Other fatigue M25.562: Chronic pain of left knee G89.29: Chronic pain of left knee COMPARISON: Comparison is made with MR pelvis dated 07/30/2017. FINDINGS: Right knee: The osseous structures are intact and well aligned without acutefracture or dislocation. There is borderline narrowing of the medial compartment. No joint effusion is seen. A patellar enthesophyte is present. Bone density is normal. Left knee: The osseous structures are intact and well aligned without acutefracture or dislocation. There is borderline narrowing of the medial compartment. No joint effusion is seen. Pelvis: No acute fracture is identified. The femoral heads appear well-seated within their respective acetabula. The pubic symphysis is intact. Mild degenerative changes of the hip joints are seen with minimal osteophyte formation but relative preservation of joint spaces. The sacroiliacjoints are normal. Bone density is normal. Sacroiliac joints: Joint spaces are preserved. There is no erosion or bone production. Bone density is normal. IMPRESSION: 1. Minimal degenerative changes of the hips bilaterally. 2. Borderline narrowing of the medial compartments of the knees. 3. Normal sacroiliac joints. Dictated by Diaz White MD (finance vice president). This report was approved by Diaz White M.D. on 12/18/2017 9:15 AM. I, Dr. LAUREN MORAES M.D. have personally reviewed and interpreted this examination/study. This report was electronically signed by LAUREN MORAES M.D. on 12/18/2017 9:21 AM . Katarzyna Fuller MD DIAGNOSTIC CAREY GING ORDERABLES * XR SI JOINTS 3VW OR MORE (12/17/2017 4:19 PM CDT) Anatomical Region Laterality Modality Pelvis, Lower Extremity Radiogra [facility] 12/18/2017 8:19 AM CDT Impressions 12/18/2017 9:21 AM CDT IMPRESSION: 1. Minimal degenerative changes of the hips bilaterally. 2. Borderline narrowing of the medial compartments of the knees. 3. Normal sacroiliac joints. Dictated by Diaz White MD (finance vice president). This report was approved by Diaz White M.D. on 12/18/2017 9:15 AM . I, Dr. LAUREN MORAES M.D. have personally reviewed and interpreted this examination/study. This report was electronically signed by LAUREN MORAES M.D. on 12/18/2017 9:21 AM . Narrative 12/18/2017 9:21 AM CDT EXAMINATION: XR KNEE LEFT 2VW OR LESS, XR SI JOINTS 3VW OR MORE, XR PELVIS W BILAT HIP 2VW, XR KNEE RIGHT 2VW OR LESS HISTORY: M25.559: Arthralgia of hip, unspecified laterality M54.9: Mid back pain G89.29: Other chronic pain M79.1: Myalgia R53.83: Other fatigue M25.562: Chronic pain of left knee G89.29: Chronic pain of left knee COMPARISON: Comparison is made with MR pelvis dated 07/30/2017. FINDINGS: Right knee: The osseous structures are intact and well aligned without acute fracture or dislocation. There is borderline narrowing of the medial compartment. No joint effusion is seen. A patellar enthesophyte is present. Bone density is normal. Left knee: The osseous structures are intact and well aligned without acute fracture or dislocation. There is borderline narrowing of the medial compartment. No joint effusion is seen. Pelvis: No acute fracture is identified. The femoral heads appear well-seated within their respective acetabula. The pubic symphysis is intact. Mild degenerative changes of the hip joints are seen with minimal osteophyte formation but relative preservation of joint spaces. The sacroiliac joints are normal. Bone density is normal. Sacroiliac joints: Joint spaces are preserved. There is no erosion or bone production. Bone density is normal. Procedure Note Lauren Moraes MD - 12/18/2017 EXAMINATION: XR KNEE LEFT 2VW OR LESS, XR SI JOINTS 3VW OR MORE, XRPELVIS W BILAT HIP 2VW, XR KNEE RIGHT 2VW OR LESS HISTORY: M25.559: Arthralgia of hip, unspecified laterality M54.9: Mid back pain G89.29: Other chronic pain M79.1: Myalgia R53.83: Other fatigue M25.562: Chronic pain of left knee G89.29: Chronic pain of left knee COMPARISON: Comparison is made with MR pelvis dated 07/30/2017. FINDINGS: Right knee: The osseous structures are intact and well aligned without acutefracture or dislocation. There is borderline narrowing of the medial compartment. No joint effusion is seen. A patellar enthesophyte is present. Bone density is normal. Left knee: The osseous structures are intact and well aligned without acutefracture or dislocation. There is borderline narrowing of the medial compartment. No joint effusion is seen. Pelvis: No acute fracture is identified. The femoral heads appear well-seated within their respective acetabula. The pubic symphysis is intact. Mild degenerative changes of the hip joints are seen with minimal osteophyte formation but relative preservation of joint spaces. The sacroiliacjoints are normal. Bone density is normal. Sacroiliac joints: Joint spaces are preserved. There is no erosion or bone production. Bone density is normal. IMPRESSION: 1. Minimal degenerative changes of the hips bilaterally. 2. Borderline narrowing of the medial compartments of the knees. 3. Normal sacroiliac joints. Dictated by Diaz White MD (finance vice president). This report was approved by Diaz White M.D. on 12/18/2017 9:15 AM. I, Dr. LAUREN MORAES M.D. have personally reviewed and interpreted this examination/study. This report was electronically signed by LAUREN MORAES M.D. on 12/18/2017 9:21 AM . Katarzyna Fuller MD DIAGNOSTIC CAREY OLIVIA ORDERABLES * XR THORACIC SPINE 3VW (12/17/2017 4:19 PM CDT) Anatomical Region Laterality Modality Spine Radiographic Carey ging 12/18/2017 7:11 AM CDT Impressions 12/18/2017 12:55 PM CDT IMPRESSION: No acute fracture or subluxation identified. Large osteophytes and mild anterior flowing ossification which may indicate diffuse idiopathic skeletal hyperostosis (DISH) Dictated by Rayshawn Stewart MD (finance vice president). Dr. LAUREN Hallman M.D. have personally reviewed and interpreted this examination/study. This report was electronically signed by LAUREN MORAES M.D. on 12/18/2017 12:55 PM . Narrative 12/18/2017 12:55 PM CDT EXAMINATION: XR THORACIC SPINE 3VW HISTORY: M25.559: Arthralgia of hip, unspecified laterality M54.9: Mid back pain G89.29: Other chronic pain M79.1: Myalgia R53.83: Other fatigue M25.562: Chronic pain of left knee G89.29: Chronic pain of left knee COMPARISON: No prior study is available for comparison. FINDINGS: There are 12 rib-bearing thoracic type vertebral bodies. The vertebral bodies are normally aligned. There is no fracture or compression deformity. There is relative preservation of disc spaces. Large osteophytes are seen on each side of the mid and lower thoracic spine and there is flowing paravertebral ossification anteriorly. Findings may indicate diffuse idiopathic skeletal hyperostosis. Procedure Note Lauren Moraes MD - 12/18/2017 EXAMINATION: XR THORACIC SPINE 3VW HISTORY: M25.559: Arthralgia of hip, unspecified laterality M54.9: Mid back pain G89.29: Other chronic pain M79.1: Myalgia R53.83: Other fatigue M25.562: Chronic pain of left knee G89.29: Chronic pain of left knee COMPARISON: No prior study is available for comparison. FINDINGS: There are 12 rib-bearing thoracic type vertebral bodies. The vertebral bodies are normally aligned. There is no fracture or compression deformity. There is relative preservation of disc spaces. Large osteophytes are seen on each side of the mid and lower thoracic spineand there is flowing paravertebral ossification anteriorly. Findings may indicate diffuse idiopathic skeletal hyperostosis. IMPRESSION: No acute fracture or subluxation identified. Large osteophytes and mild anterior flowing ossification which may indicate diffuse idiopathic skeletal hyperostosis (DISH) Dictated by Rayshawn Stewart MD (finance vice president). Dr. LAUREN Hallman M.D. have personally reviewed and interpreted this examination/study. This report was electronically signed by LAUREN MORAES M.D. on 12/18/2017 12:55 PM . Katarzyna Fuller MD DIAGNOSTIC CAREY GING ORDERABLES * CYCLIC CITRUL PEPTIDE AB IGG (CCP) (12/17/2017 3:55 PM CDT) CCP Antibody IgG 0.5 <5.0 U/mL 12/17/2017 5:53 PM CDT [facility] Blood BLOOD SPECIMEN / Unknown Lab Venipuncture / Unknown 12/17/2017 3:55 PM CDT 12/17/2017 4:56 PM CDT Katarzyna Fuller MD LAB - CHEMISTR Y ORDERABLES Performing Organization Address City/State/[facility] Co de Phone Number [address] [phone] * XR CERVICAL SPINE 4 OR 5VW (06/22/2017 9:21 AM POLICE LIAISON OFFICER) Anatomical Region Laterality Modality Spine Other Impressions 06/22/2017 3:08 PM POLICE LIAISON OFFICER IMPRESSION: No acute fracture or subluxation identified. Multilevel degenerative disease. Dictated by Josefa Aaron MD (finance vice president). IDr. TRAE MD have personally reviewed and interpreted this examination/study. This report was electronically signed by TRAE MUNGUIA MD on 06/22/2017 3:08 PM . Narrative 06/22/2017 3:08 PM POLICE LIAISON OFFICER EXAMINATION: XR SPINE CERVICAL 4 VW MIN HISTORY: neck pain COMPARISON: No prior study is available for comparison. FINDINGS: There are intervertebral disc space narrowing associated with hypertrophic spur formation consistent with moderate degenerative changes at C5-C6, C6-C7, and C7-T1 levels. The vertebral bodies are normally aligned. No acute fracture or compression deformity is identified. The remaining intervertebral disc spaces are maintained. Procedure Note Trae Munguia MD - 11/06/2017 EXAMINATION: XR SPINE CERVICAL 4 VW MIN HISTORY: neck pain COMPARISON: No prior study is available for comparison. FINDINGS: There are intervertebral disc space narrowing associated with hypertrophicspur formation consistent with moderate degenerative changes at C5-C6,C6-C7, and C7- T1 levels. The vertebral bodies are normally aligned. No acute fracture orcompression deformity is identified. The remaining intervertebral discspaces are maintained. IMPRESSION IMPRESSION: No acute fracture or subluxation identified. Multilevel degenerative disease. Dictated by Josefa Aaron MD (finance vice president). Dr. TRAE Hallman MD have personally reviewed and interpreted thisexamination/study. This report was electronically signed by TRAE MUNGUIA MD on06/22/2017 3:08 PM . Nell Mina Samuel PA-C DIAGNOSTIC CAREY GING ORDERABLES * XR LUMBAR SPINE 4VW OR MORE (06/22/2017 9:21 AM POLICE LIAISON OFFICER) Anatomical Region Laterality Modality Spine Other Impressions 06/22/2017 3:10 PM POLICE LIAISON OFFICER IMPRESSION: Mild to moderate degenerative changes. Dictated by Josefa Aaron MD (finance vice president). Dr. TRAE Hallman MD have personally reviewed and interpreted this examination/study. This report was electronically signed by TRAE MUNGUIA MD on 06/22/2017 3:10 PM . Narrative 06/22/2017 3:10 PM POLICE LIAISON OFFICER EXAMINATION: XR SPINE LUMBAR 4 VW MIN HISTORY: back pain COMPARISON: No prior study is available for comparison. FINDINGS: There is no fracture or subluxation. There is multilevel degenerative disc disease characterized by large endplate osteophytes and endplate sclerosis, although the disc spaces themselves are relatively preserved. There is facet degeneration in the lower lumbar spine. Vascular calcification is noted. Procedure Note Trae Munguia MD - 11/06/2017 EXAMINATION: XR SPINE LUMBAR 4 VW MIN HISTORY: back pain COMPARISON: No prior study is available for comparison. FINDINGS: There is no fracture or subluxation. There is multilevel degenerative discdisease characterized by large endplate osteophytes and endplatesclerosis, although the disc spaces themselves are relatively preserved.There is facet degeneration in the lower lumbar spine. Vascular calcification is noted. IMPRESSION IMPRESSION: Mild to moderate degenerative changes. Dictated by Josefa Aaron MD (finance vice president). Dr. TRAE Hallman MD have personally reviewed and interpreted thisexamination/study. This report was electronically signed by TRAE MUNGUIA MD on06/22/2017 3:10 PM . Nell Samuel PA-C DIAGNOSTIC CAREY GING ORDERABLES * MRI CERVICAL SPINE WO CONTRAST (06/22/2017 7:10 AM POLICE LIAISON OFFICER) Anatomical Region Laterality Modality Pelvis Other Impressions 06/22/2017 10:57 AM POLICE LIAISON OFFICER IMPRESSION: 1. Multilevel degenerative disc and joint disease in the cervical spine as described above, most pronounced at C6-7, without central canal stenosis. This report was approved by Sachi Mcmanus M.D. on 06/22/2017 10:[address] DOMI Hallman M.D. have personally reviewed and interpreted this examination/study. This report was electronically signed by DOMI STAPLETON M.D. on 06/22/2017 10:57 AM . Narrative 06/22/2017 10:57 AM POLICE LIAISON OFFICER This is a summary report. The complete report is available in the patient's medical record. If you cannot access the medical record, please contact the sending organization for a detailed fax or copy. EXAMINATION: Magnetic resonance imaging (MRI) of the cervical spine without contrast HISTORY: Neck pain TECHNIQUE: MRI of the cervical spine was performed without contrast according to standard protocol. FINDINGS: No prior study is available for comparison at the time of this dictation. There is gentle kyphosis of the lower cervical spine. Vertebral bodies are normal in height without evidence of compression fractures. Modic type II endplate change is present at the inferior endplate of C6 and superior endplate of C7. Small hemangiomas are noted in the C3 and C5 vertebral bodies. Other than atlantoaxial osteoarthritis, the craniocervical junction and visualized portions of the posterior fossa appear normal. The spinal cord appears normal. There is multilevel degenerative disc disease with disc bulge, height loss, and desiccation, most pronounced at C6-7. No soft tissue abnormality is identified. Normal flow voids are identified in the vertebral arteries. C2-3: There is no disc bulge. There is no central canal stenosis. There is mild bilateral facet osteoarthritis. There is no uncovertebral joint osteoarthritis. There is no neural foraminal stenosis. C3-4: There is mild disc bulge. There is no central canal stenosis. There is mild bilateral facet osteoarthritis. There is no uncovertebral joint osteoarthritis. There is mild left neural foraminal stenosis. C4-5: There is mild disc bulge. There is no central canal stenosis. There is mild bilateral facet osteoarthritis. There is mild bilateral uncovertebral joint osteoarthritis. There is mild bilateral neural foraminal stenosis. C5-6: There is diffuse disc bulge. There is no central canal stenosis. There is mild bilateral facet osteoarthritis. There is mild bilateral uncovertebral joint osteoarthritis. There is mild bilateral neural foraminal stenosis. C6-7: There is diffuse disc bulge. There is no central canal stenosis. There is mild bilateral facet osteoarthritis. There is moderate bilateral uncovertebral joint osteoarthritis. There is moderate bilateral neural foraminal stenosis. C7-T1: There is no disc bulge. There is no central canal stenosis. There is mild bilateral facet osteoarthritis. There is no uncovertebral joint osteoarthritis. There is no neural foraminal stenosis. Procedure Note Domi Stapleton MD - 11/06/2017 This is a summary report. The complete report is available in thepatient's medical record. If you cannot access the medical record, pleasecontact the sending organization for a detailed fax or copy. EXAMINATION: Magnetic resonance imaging (MRI) of the cervical spinewithout contrast HISTORY: Neck pain TECHNIQUE: MRI of the cervical spine was performed without contrastaccording to standard protocol. FINDINGS: No prior study is available for comparison at the time of thisdictation. There is gentle kyphosis of the lower cervical spine. Vertebral bodies arenormal in height without evidence of compression fractures. Modic type IIendplate change is present at the inferior endplate of C6 and superiorendplate of C7. Small hemangiomas are noted in the C3 and C5 vertebral bodies. Other than atlantoaxialosteoarthritis, the craniocervical junction and visualized portions of theposterior fossa appear normal. The spinal cord appears normal. There ismultilevel degenerative disc disease with disc bulge, height loss, and desiccation, most pronounced at C6-7. Nosoft tissue abnormality is identified. Normal flow voids are identified inthe vertebral arteries. C2-3: There is no disc bulge. There is no central canal stenosis. There ismild bilateral facet osteoarthritis. There is no uncovertebral jointosteoarthritis. There is no neural foraminal stenosis. C3-4: There is mild disc bulge. There is no central canal stenosis. Thereis mild bilateral facet osteoarthritis. There is no uncovertebral jointosteoarthritis. There is mild left neural foraminal stenosis. C4-5: There is mild disc bulge. There is no central canal stenosis. Thereis mild bilateral facet osteoarthritis. There is mild bilateraluncovertebral joint osteoarthritis. There is mild bilateral neuralforaminal stenosis. C5-6: There is diffuse disc bulge. There is no central canal stenosis.There is mild bilateral facet osteoarthritis. There is mild bilateraluncovertebral joint osteoarthritis. There is mild bilateral neuralforaminal stenosis. C6-7: There is diffuse disc bulge. There is no central canal stenosis.There is mild bilateral facet osteoarthritis. There is moderate bilateraluncovertebral joint osteoarthritis. There is moderate bilateral neuralforaminal stenosis. C7-T1: There is no disc bulge. There is no central canal stenosis. Thereis mild bilateral facet osteoarthritis. There is no uncovertebral jointosteoarthritis. There is no neural foraminal stenosis. IMPRESSION IMPRESSION: 1. Multilevel degenerative disc and joint disease in the cervical spine asdescribed above, most pronounced at C6-7, without central canalstenosis. This report was approved by Sachi Mcmanus M.D. on 06/22/2017 10:11 AM . I, Dr. DOMI STAPLETON M.D. have personally reviewed and interpreted thisexamination/study. This report was electronically signed by DOMI STAPLETON M.D. on 06/22/201710:57 AM . Nell Samuel PA-C MR ORDERABLES * PATHOLOGY/GENETICS HISTORICAL-ONBASE (02/11/2017) Only the most recent of4 resultswithin the time period is included. 02/11/2017 Historical Provider LAB - CHEMISTRY O RDERABLES [facility] [address] [place] [address], [facility] * URINALYSIS - POINT OF CARE (AMB) [facility] (02/09/2017 8:53 AM CDT) Glucose UA neg [facility] Bilirubin UA POCT neg [facility] Ketones UA POCT neg [facility] Specific [place] UA 1.030 [facility] Blood Urine POCT [facility] pH UA 5.0 [facility] Protein UA neg [facility] Urobilinogen UA neg [facility] Nitrite UA neg [facility] WBC UA neg [facility] Urine specimen (specimen) 02/09/2017 8:53 AM CDT Davy Cary MD LAB - POINT OF CARE ORDERABLES [facility] Care Teams Investment Banking Manager Relationship Specialty Start Date End Date Stephan Odell DO PCP - General 05/25/17
--- OUTSIDE RECORDS SUMMARY | 2024-10-03 02:41 | XMS_ITS | Referral Summary ---
Author Organization [facility] [employer] Address [address] [place] [address] Care Team Providers Care Biofuels Product Development Manager Name Role Phone Stephan Odell DO Primary Care Provider Source Comments [facility] [employer],non-owned Affiliates and Associated Physician Practices is amultiple site organization consisting of ambulatory clinics and hospital sitesin [place], [place], [place] and [place]. This disclosure is being madepursuant to the Care Everywhere program and may not contain all information available regarding this patient. Last updated 18.[facility] [employer] Allergies No known active allergies Medications * [...] problem 05/03/2018 Overview (05/12/2018): U[facility] at [facility] within normallimits Primary osteoarthritis of both hips [...] Comments Blood Pressure 120/75 07/08/2021 9:48 AM PRODUCTION MECHANIC Pulse 59 07/08/2021 9:48 AM PRODUCTION MECHANIC Temperature 36.2 C (97.2 F) 10/10/2019 10:09 AM PRODUCTION MECHANIC Respiratory Rate 14 05/03/2018 3:18 PM CDT Oxygen Saturation 95% 07/08/2021 9:48 AM PRODUCTION MECHANIC Inhaled Oxygen Concentration - - Weight 95.7 kg (211 lb) 07/08/2021 9:48 AM PRODUCTION MECHANIC Height 180.3 cm (5' 11 ) 07/08/2021 9:48 AM PRODUCTION MECHANIC Body Mass Index 29.43 07/08/2021 9:48 AM PRODUCTION MECHANIC Plan of Treatment Not on file Procedures Procedure Name Priority Date/Time Associated Diagnosis Comments HEPATITIS C RNA QUANTITATIVE Routine 05/03/2018 4:13 PM CDT Hepatitis C antibody test positive from Last 3 Months or Most Recently Relevant to Health Maintenance Results * HEPATITIS C RNA QUANTITATIVE (05/03/2018 4:13 PM CDT) Hepatitis C RNA PCR, Interp Not Detected Not Detected 05/07/2018 8:04 AM CDT [facility] Blood BLOOD SPECIMEN / Unknown Lab Venipuncture / Unknown 05/03/2018 4:13 PM CDT 05/03/2018 4:17 PM CDT Narrative [facility] - 05/07/2018 8:04 AM CDT The Hepatitis C viral (HCV) RNA analysis utilized a serum sample, real-time reverse physician credentialing specialist PCR, and is reported as Not Detected, [...] the isolation of HCV RNA with reverse physician credentialing specialist of genomic HCV RNA followed by real-time PCR in the presence of an unrelated RNA internal control. The internal control ensures that RNA is isolated, and that no general significant inhibitors of the RT-PCR process are present. The analysis was performed using a U.S. FDA approved test methodology ([employer] Real Time HCV). Sarah Christian APRN-FORKLIFT MATERIAL HANDLER LAB - CHEMIS TRY ORDERABLES [facility] [address] [facility] [phone] from Last 3 Months or Most Recently Relevant to Health Maintenance Care Teams Biofuels Product Development Manager Relationship Specialty Start Date End Date Stephan Odell DO PCP - General 05/25/17
[2024-10-03 08:17] VITALS: BP 134/75; PULSE 92; RESP 20; TEMP 36.2; O2SAT 99
[2024-10-03] MEDS: LACTATED RINGERS 1,000 ML 150 ML IV CONT (08:28)
--- NOTE | 2024-10-03 08:37 | WPDANESEPPF ---
Anes - Initial Pre Proc Eval Procedure: Operation Date: 10/03/24 09:30 Proposed Procedures p Screening Colonoscopy - Xavier Fuller DO Date/Time: 10/03/24 08:37 Surgeon: Xavier Fuller DO Pre Op Diagnosis: Screening for malignant neoplasm of colon Patient Data Age: 69 Gender: M Height: 1.78 m Weight: 111.8 kg Last Vital Signs Temp 97.1 F L 10/03/24 08:17 Pulse 92 10/03/24 08:17 Resp 20 10/03/24 08:17 BP 134/75 10/03/24 08:17 Pulse Ox 99 10/03/24 08:17 O2 Del Method Room Air 10/03/24 08:17 Allergies Allergy/AdvReac Type Severity Reaction Status Date / Time No Known Allergies Allergy Verified 10/03/24 08:14 Home Medications ?Medication ?Instructions ?Recorded ?Confirmed ?Type atorvastatin 40 mg tablet 40 mg PO DAILY 08/27/22 10/03/24 History fluticasone furoate 50 1 inh inhalation Q24H 09/08/24 10/03/24 History mcg/actuation blister powder for inhalation sildenafil 100 mg tablet (Viagra) 100 mg PO DAILY PRN sexual activity 09/08/24 10/03/24 History amitriptyline 50 mg tablet 50 mg PO QHS #90 tabs 09/12/24 10/03/24 Rx loratadine 10 mg tablet 10 mg PO Q24H 09/19/24 10/03/24 History losartan 100 mg tablet 100 mg PO DAILY #90 tabs 09/27/24 10/03/24 Rx Patient hx anesthesia problems: none Family hx anesthesia problems: none Results Review: All pre-operative results and documents have been reviewed as part of the pre-operative evaluation. [facility] Past Medical History Medical History Chronic ear infection Hemorrhoids Edema, spinal cord Hepatitis Arthritis Allergies Surgical History Surgical History H/O prostate biopsy Family History Family History Grandparent Family history of heart disease in male family member before age 55 Grandparent Heart problem Malignant neoplasm of prostate Social History Social History Smoking status: Never smoker Alcohol intake: current Drinks per week: 2 Alcohol use details: 5-7 drinks per week Substance use: former Substance use type: marijuana Do You Feel Safe in your Home?: Yes Lack of Transportation: No Lack of Food: Never True Current Housing: I Have Housing Concerned About Future Housing: No Difficulty Paying Gas/Electric Bills: YES Difficulty Paying for Meds: No Currently Unemployed: No Education: Bachelor's Degree Difficulty w/ Childcare or Family Care: No Living arrangements: alone Anes - Eval Final PreProcedure Day of Procedure 10/03/24 08:37 Patient weight: obese Lungs: normal air movement Airway: Mallampati scale and special considerations (Missing tooth bottom L area. ) Neurological: alert and oriented Last oral intake: >/= 8 hours ASA classification: III Emergent: no Anesthetic plan: proceed Anesthesia type and monitoring: general GIVS and standard monitoring Results Review: All pre-operative results and documents have been reviewed as part of the pre-operative evaluation. HTN, hyperlipidemia, hx Hep C treated effectively, BMI 35, prostate CA. Pt does aerobic exercise 5 x weekly, no cp or sob. Informed Consent: The patient's anesthetic plan and its attendant risks and benefits were discussed with the patient/family/POA. Questions were solicited and answers provided to the satisfaction of the patient/family/POA.
--- NOTE | 2024-10-03 09:15 | P.HP_ITS ---
H&P: HPI History of Present Illness Date/Time: 10/03/24 09:15 Chief Complaint: screening for colorectal cancer Narrative: this is a 69-year-old man who presents for colonoscopy. His last colonoscopy was 10 years ago. He denies any hematochezia or melena. He denies family history of colon cancer. Review of Systems Review of Systems: All systems reviewed & are unremarkable except as noted in HPI and below Constitutional: Constitutional: Denies chills, Denies fever(s), Denies headache(s) and Denies weight loss Eyes: Eyes: Denies change in vision ENT: Denies dizziness, Denies headache(s), Denies neck mass and Denies throat swelling Cardiovascular: Cardiovascular: Denies chest pain, Denies lightheadedness and Denies dyspnea Respiratory: Respiratory: Denies cough, Denies dyspnea and Denies wheezing Gastrointestinal: Gastrointestinal: Denies abdominal pain, Denies change in bowel habits, Denies nausea and Denies vomiting Genitourinary: Genitourinary: Denies hematuria and Denies dysuria Musculoskeletal: Musculoskeletal: Reports as per HPI Integumentary/Breasts: Skin/Breast: Reports as per HPI Neurologic: Denies dizziness and Denies headache(s) Allergic/Immunologic: Allergic/Immunologic: Denies throat swelling and Denies wheezing [facility] Past Medical History Medical History Chronic ear infection Hemorrhoids Edema, spinal cord Hepatitis Arthritis Allergies Surgical History Surgical History H/O prostate biopsy Family History Family History Grandparent Family history of heart disease in male family member before age 55 Grandparent Heart problem Malignant neoplasm of prostate Social History Social History Smoking status: Never smoker Alcohol intake: current Drinks per week: 2 Alcohol use details: 5-7 drinks per week Substance use: former Substance use type: marijuana Do You Feel Safe in your Home?: Yes Lack of Transportation: No Lack of Food: Never True Current Housing: I Have Housing Concerned About Future Housing: No Difficulty Paying Gas/Electric Bills: YES Difficulty Paying for Meds: No Currently Unemployed: No Education: Bachelor's Degree Difficulty w/ Childcare or Family Care: No Living arrangements: alone Meds Home Medications and Allergies Home Medications ?Medication ?Instructions ?Recorded ?Confirmed ?Type atorvastatin 40 mg tablet 40 mg PO DAILY 08/27/22 10/03/24 History fluticasone furoate 50 1 inh inhalation Q24H 09/08/24 10/03/24 History mcg/actuation blister powder for inhalation sildenafil 100 mg tablet (Viagra) 100 mg PO DAILY PRN sexual activity 09/08/24 10/03/24 History amitriptyline 50 mg tablet 50 mg PO QHS #90 tabs 09/12/24 10/03/24 Rx loratadine 10 mg tablet 10 mg PO Q24H 09/19/24 10/03/24 History losartan 100 mg tablet 100 mg PO DAILY #90 tabs 09/27/24 10/03/24 Rx Allergies Allergy/AdvReac Type Severity Reaction Status Date / Time No Known Allergies Allergy Verified 10/03/24 08:14 Vital Signs Vital Signs - 24 hr 10/03/24 08:17 Temperature 97.1 F L Pulse Rate 92 Respiratory Rate 20 Blood Pressure 134/75 Pulse Oximetry 99 Oxygen Delivery Room Air Exam Const: General: no acute distress and alert Orientation/consciousness: patient oriented x3 HENMT: Head: normocephalic and atraumatic Ears: hearing grossly normal bila terally Face/Nose/Sinus: Normal nares present Mouth: Yes Normal oral and palatal mucosa present Eyes: Periorbital: periorbital findings normal Sclera: sclerae normal EOM: EOMs intact bilaterally Neck: Neck: normal visual inspection, no lymphadenopathy and trachea midline Chest: Chest palpation & inspection: normal inspection of the chest Resp: Effort & Inspection: normal respiratory effort Auscultation: clear to auscultation bilaterally Cardio: Jugular venous distension: no JVD Rate: regular rate Rhythm: regular rhythm Heart sounds: S1 normal heart sound present and S2 normal heart sound present Peripheral pulses: Peripheral pulses 2+ throughout GI: Inspection: normal to inspection GI Palp: Yes Soft to palpation, No Tenderness to palpation present (GI), No Guarding due to palpation present (GI) and No Rebound tenderness present Percussion: Yes normal to percussion Auscultation: normal bowel sounds : General: Yes no CVA tenderness Back/Spine/Pelvis: Back: no CVA tenderness Neuro: General: patient oriented x3, no focal motor deficits and CN's II-XI intact bilaterally Cognition (Neuro): normal cognition Speech: normal s peech Motor exam (neuro): 5/5 motor strength present throughout Extrem: General: capillary refill normal and no clubbing, cyanosis or edema Assessment and Plan Assessment and plan (1) Screening for colorectal cancer: Code(s): Z12.11 - Encounter for screening for malignant neoplasm of colon; Z12.12 - Encounter for screening for malignant neoplasm of rectum Status: Acute Assessment and Plan: I have recommended colonoscopy. I have discussed the procedure, risks, benefits, and alternatives. Questions were answered. Patient is agreeable to proceed.
[2024-10-03 09:45] VITALS: BP 86/55; PULSE 72; RESP 23; O2SAT 93
[2024-10-03 09:55] VITALS: BP 94/56; PULSE 66; RESP 21; O2SAT 94
[2024-10-03 10:05] VITALS: BP 104/65; PULSE 600; RESP 22; O2SAT 98
== END 2024-10-03 10:21 | disposition home or self-care (01) ==
PROVIDERS: PCP Family Medicine; Visit Provider Surgery
PROC: 0DJD8ZZ Inspection of Lower Intestinal Tract, Via Natural or Artificial Opening Endoscopic (ICD-10-PCS; CPT 45378; principal; 2024-10-03 09:30)
DX: Z12.11 Encounter for screening for malignant neoplasm of colon (principal); D12.5 Benign neoplasm of sigmoid colon; D12.3 Benign neoplasm of transverse colon; K57.30 Diverticulosis of large intestine without perforation or abscess without bleeding; M19.90 Unspecified osteoarthritis, unspecified site; E66.9 Obesity, unspecified; Z68.35 Body mass index [BMI] 35.0-35.9, adult; Z98.890 Other specified postprocedural states; Z79.51 Long term (current) use of inhaled steroids; Z80.42 Family history of malignant neoplasm of prostate; Z82.49 Family history of ischemic heart disease and other diseases of the circulatory system
CPT/HCPCS: 45385; 88305; J2003; J2704; J7120

== ENCOUNTER 2025-01-22 05:01 | Emergency (ER) | payer MEDICARE, MEDICAID, SELFPAY ==
--- OUTSIDE RECORDS SUMMARY | 2025-01-22 05:04 | XMS_ITS | Encounter Summary ---
Author Organization [facility] Address [address] [place] [address] Care Team Providers Care Journeyman Pipefitter Name Role Phone Stephan Odell DO Primary Care Provider Reason for Visit * Reason Comments Refill Request Encounter Details Date Type Department Care Team (Late st Contact Info) Description 05/26/2018 Refill [facility] [address] [place] [address] Davy Cary MD [address] [place] [id number] Refill Request Social History Tobacco Use Types Packs/Day Years Used Date Smoking Tobacco: Former Cigarettes Q uit: 08/10/2013 Smokeless Tobacco: Never Alcohol Use Standard Drinks/Week Comments No 0 (1 standard drink = 0.6 oz pur e alcohol) Sex and Gender Information Value Date Recorded Sex Assigned at Not on file Legal Sex Male 5:12 PM CORRECTIONAL CLASSIFICATION COUNSELOR Gender Identity Not on file Sexual Orientation Not on file documented as of this encounter Plan of Treatment Not on file documented as of this encounter Visit Diagnoses Not on filedocumented in this encounter Care Teams Journeyman Pipefitter Relationship Specialty Start Date End Date Stephan Odell DO PCP - General 05/25/17 documented as of this encounter
--- OUTSIDE RECORDS SUMMARY | 2025-01-22 05:04 | XMS_ITS | Clinical Summary ---
Author Organization [facility] Address [address], [facility] [address] [place] [address] Phone Care Team Providers Care Supervisor Facepiece Line Name Role Phone Sergio Caballero MD Primary [...] Active Active Problems No known active problems Encounters Date Type Department Care Team Description 01/18/2025 Telephone [facility] [address] [place] [address] Raymond Estevez MD 12/29/2024 Telephone [facility] [address] [place] [address] Augusto Brown, VISUAL DESIGNER, FRONT END LOADER DRIVER from Last 3 Months Family History Relation Name Status Comments Father [...] to technical error Height 180.3 cm (5' 11) 05/20/2023 9:3 2 AM CDT BMI incorrect due to technical error Body Mass Index 35.66 05/20/2023 9:32 AM CDT Plan of Treatment Health Maintenance Due Date Last Done Comments Hepatitis C Virus (HCV) Screening 1957 Cologuard 2002 Colonoscopy 2002 Colorectal Cancer Screening 2002 Immunochemical Fecal Occult Blood 2002 Pneumococcal Immunization (5 0+ years) (1 of 1 - PCV) 2007 Zoster Immunization (1 of 2) 2007 SARS-COV-2 Immunization (4 - season) 2024 08/12/2021, 01/07/2021, 12/09/2020 Influenza Immunization (Seas on Ended) 2025 Respiratory Syncytial Virus (RSV) Immunization (Adult) (1 - 1-dose 75+ series) 01/24/2032 DTaP/Tdap/Td Immunization Discontinued 11/15/2018 TdaP Immunization Completed 11/15/2018 PSA Discussion Completed 05/06/2023 Hepatitis B Immunization Aged Out No longer eligible based on patient's age to complete this topic Human Papillomavirus (HPV) Immunization Aged Out No longer eligible based [...] PSA 7.03(H) 0.00 - 4.00 ng/mL [facility] Comment: Jg Paramagnetic Particle Chemiluminescent Immunoassay Method Blood 05/06/2023 9:18 AM CDT Narrative [facility] - 05/06/2023 3:08 PM CDT Release to patient->Immediate us Tomas Mullins MD CHEMISTRY ORDERABLES Final Resul t [facility] [place] [address], [place] [phone] from Last 3 Months or Most Recently Relevant to Health Maintenance Insurance MEDICARE MEDICAID [place] Care Teams Supervisor Facepiece Line Relationship Specialty Start Date End Date Sergio Caballero MD PCP - General Family Medicine 04/24/23
--- OUTSIDE RECORDS SUMMARY | 2025-01-22 05:04 | XMS_ITS | Clinical Summary ---
Author Organization [facility] [employer] Address [address] [facility] [place] [address] Care Team Providers Care Dumpcart Driver Name Role Phone Stephan Odell Primary Care Provider Source Comments [facility] [employer],non-owned Affiliates and Associated Physician Practices is amultiple site organization consisting of ambulatory clinics and hospital sitesin [place], [place], [place] and [place]. This disclosure is being madepursuant to the Care Everywhere program and may not contain all information available regarding this patient. Last updated 18.[facility] [employer] Allergies No known active allergies Medications * Be aware that medications may not be up to date on this document. Alwaysverify current medications with the patient. gabapentin (NEURONTIN) 600 MG tablet Take 600 mg by mouth 3 times daily 12/23/19 19 Active meloxicam (MOBIC) 15 MG tabletIndications: DISH (diffuse idiopathic skeletal hyperostosis),Prim christo osteoarthritis of both hips,Encounter for long-term (current) use of high-risk medication,Encount er for therapeutic drug monitoring Take 1 tablet by mouth once daily 90 tablet 1 12/24/19 19 Active mirabegron ER 24hr (MYRBETRIQ) 50 MG tablet Take 1 tablet by mouth once daily 30 tablet 09/02/19 20 Active Additional Information Patient not taking.Reported on 07/08/2021 DULoxetine (CYMBALTA) 60 MG capsule Take 60 mg by mouth once daily Active Active Problems Problem Noted Date Diagnosed Date Liver problem 05/03/2018 Overview (05/12/2018): U/s done at [facility] within normallimits Primary osteoarthritis of both [...] on file Legal Sex Male 5:12 PM OUTSIDE BARREL LATHE OPERATOR Gender Identity Not on file Sexual Orientation Not on file Last Filed Vital Signs Vital Sign Reading Time Taken Comments Blood Pressure 120/75 07/08/2021 9:48 AM OUTSIDE BARREL LATHE OPERATOR Pulse 59 07/08/2021 9:48 AM OUTSIDE BARREL LATHE OPERATOR Temperature 36.2 C (97.2 F) 10/10/2019 10:09 AM OUTSIDE BARREL LATHE OPERATOR Respiratory Rate 14 05/03/2018 3:18 PM CDT Oxygen Saturation 95% 07/08/2021 9:48 AM OUTSIDE BARREL LATHE OPERATOR Inhaled Oxygen Concentration - - Weight 95.7 kg (211 lb) 07/08/2021 9:48 AM OUTSIDE BARREL LATHE OPERATOR Height 180.3 cm (5' 11) 07/08/2021 9:48 AM OUTSIDE BARREL LATHE OPERATOR Body Mass Index 29.43 07/08/2021 9:48 AM OUTSIDE BARREL LATHE OPERATOR Plan of Treatment Health Maintenance Due Date Last Done Comments COLOGUARD (AGES 45-75) - COL ON CA SCREENING 1957 COLON MONITORING 1957 COLONOSCOPY - COLON CA SCREENING 1957 CT COLONOGRAPHY - COLON CA SCREENING 1957 Colorectal Cancer Screening 1957 FIT - COLON CA SCREENING 1957 FLEX SIG - COLON CA SCREENING 1957 DTAP/TDAP/TD VACCINES (1 - Tdap) 01/24/1976 PNEUMOCOCCAL VACCINE 50+ (1 of 1 - PCV) 2007 ZOSTER VACCINE (1 of 2) 2007 Respiratory Syncytial Virus (RSV) Vaccine Pt: or over 60 yrs (1 - Risk 60-74 years 1-dose series) 2017 AAA SCREENING 2022 LIPID TESTING 11/30/2023 11/29/2018 COVID-19 VACCINE (1 - 2023-2 5 season) 2024 DEPRESSION SCREENING 08/10/2024 MEDICARE AWV CALENDAR YEAR 2024 INFLUENZA VACCINE (Season Ended) 2025 HEPATITIS C SCREENING Completed 05/03/2018 , 04/05/2018, 12/17/2017 HEPATITIS B VACCINE Aged Out No longe r eligible based on patient's age to complete this topic HIB VACCINE Aged Out No longer eligi ble based on patient's age to complete this topic HPV VACCINE Aged Out No longer eligi ble based on patient's age to complete this topic MENINGOCOCCAL (Group B) VACCINE SHARED DECISION-MAKING Aged Out No longer eligible based on patient's age to complete this topic MENINGOCOCCAL GROUPS A/C/Y/W VACCINE Aged Out No longer eligible b [...] Detected Not Detected 05/07/2018 8:04 AM CDT [facility] Blood BLOOD SPECIMEN / Unknown Lab Venipuncture / Unknown 05/03/2018 4:13 PM CDT 05/03/2018 4:17 PM CDT Narrative [facility] - 05/07/2018 8:04 AM CDT The Hepatitis C viral (HCV) RNA analysis utilized a serum sample, real-time reverse watch commander PCR, and is reported as Not Detected, [...] the isolation of HCV RNA with reverse watch commander of genomic HCV RNA followed by real-time PCR in the presence of an unrelated RNA internal control. The internal control ensures that RNA is isolated, and that no general significant inhibitors of the RT-PCR process are present. The analysis was performed using a U.S. FDA approved test methodology ([employer] Real Time HCV). Sarah Christian ANALYTICAL RESEARCH PROGRAM MANAGER-[facility] - CHEMISTRY MORENO HATCH Final Result Performing Organization Address City/State/[facility] Co de Phone Number [facility] [address] [phone] from Last 3 Months or Most Recently Relevant to Health Maintenance Insurance MEDICAID - [place] UHC MANAGED MEDICARE ADV Care Teams Dumpcart Driver Relationship Specialty Start Date End Date Stephan Odell DO PCP - General 05/25/17
--- OUTSIDE RECORDS SUMMARY | 2025-01-22 05:04 | XMS_ITS | Clinical Summary ---
Author Organization [facility] Address [address] [place] [address] Care Team Providers Care Vehicle Care Specialist Name Role Phone Sergio Caballero MD Primary Care Provider [phone] Allergies No known active allergies Medications MELOXICAM 15 MG tabletIndications :Thoracic radiculopathy TAKE 1 TABLET BY MOUTH ONCE DAILY. APPOINTMENT WITH NEW PROVIDER NEEDED FOR FUTURE REFILLS. CALL [phone] TO SCHEDULE 30 tablet 0 Active gabapentin 300 MG capsuleIndication s:Thoracic radiculopathy TAKE 2 CAPSULES BY MOUTH THREE TIMES DAILY. PT NEEDS AN APPOINTMENT FOR ADDITIONAL REFILLS 180 capsule 0 Active Active Problems Problem Noted Date Diagnosed Date Thoracic radiculopathy 07/22/2017 Immunizations Immunization Administration Dates Next Due Tdap (Historical Only-select from [employer] glass) 11/15/2018 Family History Medical History Relation [...] 2:33 PM CDT Height 180.3 cm (5' 11) 01/10/2019 1:24 PM CDT Body Mass Index 32.36 01/10/2019 1:24 PM CDT Plan of Treatment Health Maintenance Due Date Last Done Comments Pneumococcal Vaccine: 50+ Years (1 of 1 - PCV) 2007 Zoster Vaccines (1 of 2) 2007 COVID-19 Vaccine (1 - season) 2024 Colorectal Cancer Screening Colonoscopy (10 Years) [...] GENERIC (SCAN ORDER) Routine 10/14/2016 12:00 AM 3D TECHNOLOGIST HEPATITIS C ANTIBODY Routine 09/24/2016 7:20 AM 3D TECHNOLOGIST from Last 3 Months or Most Recently Relevant to Health Maintenance Results * COLONOSCOPY (10/14/2016 12:00 AM 3D TECHNOLOGIST) 10/14/2016 us Documents Scanned SCANNING Final Result [facility] * (ABNORMAL) HEPATITIS C ANTIBODY (09/24/2016 7:20 AM 3D TECHNOLOGIST) HEPATITIS C AB REACTIVE TESTING PERFORMED AT [address] [address] SPECIMEN RESPUN RESULTS CONFIRMED-KEE T REPEATED (A) NR [employer] TO EPIC CONVERSION 09/24/2016 7:20 AM 3D TECHNOLOGIST 09/24/2016 7:20 AM 3D TECHNOLOGIST Narrative [employer] TO EPIC CONVERSION - 09/25/2016 7:38 PM 3D TECHNOLOGIST Result Communication: No patient communication needed at this time us Stephan Odell DO LABORATORY Final Result [employer] TO EPIC CONVERSION from Last 3 Months or Most Recently Relevant to Health Maintenance Insurance [place] Care Teams Vehicle Care Specialist Relationship Specialty Start Date End Date Sergio Caballero MD PCP - General FAMILY PRACTICE 12/14/19
[2025-01-22 05:06] VITALS: BP 153/109; PULSE 95; RESP 16; TEMP 37.1; O2SAT 100
[2025-01-22 05:20] VITALS: BP 167/90; PULSE 67; RESP 18; O2SAT 97
[2025-01-22 05:23] LABS: Basophils Percent Auto 0.3 % (0.2-1.2); Eosinophils Percent Auto 0.1 % (0-4.4); Hematocrit 43.9 % (42.0-52.0); Immature Granulocyte Absolute 0.03 K/mm3 (0.00-0.031); Immature Granulocyte Percent A 0.3 % (0-0.5); Lymphocytes Absolute Auto 1.61 K/mm3 (0.9-3.2); Lymphocytes Percent Auto 16.2 % (18.3-44.2); Mean Corpuscular HGB Conc 34.2 g/dl (32-36); Mean Corpuscular Hemoglobin 30.9 pg (26-34); Mean Corpuscular Volume 90.5 fl (80-100); Mean Platelet Volume 9.1 fl (7.4-10.4); Monocytes Absolute Auto 0.9 K/mm3 (0.1-0.6); Neutrophils Absolute Auto 7.4 K/mm3 (1.3-6.7); Neutrophils Percent Auto 74.1 % (45.5-73.1); Platelet Count Result 212 k/mm3 (150-375); Red Blood Count 4.85 M/mm3 (4.6-6.20); Red Cell Distribution Width 13.2 % (11.5-14.5); White Blood Count 9.9 K/mm3 (4.5-10.0)
[2025-01-22 05:24] LABS: Add Urine Microscopic? NO; Appearance Urine Clear (Clear); Bilirubin Urine Negative (Negative); Blood Urine Negative (Negative); Color Urine Yellow (Yellow); Glucose Urine UA Negative (Negative); Ketones Urine Negative (Negative); Leukocyte Esterase Ur Negative LEU/UL (Negative); Nitrate Urine Negative (Negative); Protein Urine Negative (Negative); Specific Grav Ur 1.015 (1.001-1.035); Urobilinogen Urine 0.2 mg/dL (<2.0)
--- NOTE | 2025-01-22 05:28 | ED.MALEGU ---
HPI - Male Genitourinary General Chief complaint: Urogenital-Male Stated complaint: not able to urinate Time Seen by Provider: 01/22/25 05:02 History of Present Illness HPI Narrative: For the past 24h patient has not been able to void; has h/o prostate cancer (seeing his urologist on Thursday) but never had issues like this before. Waited because he wanted to avoid a big hospital bill but couldn't find any catheters and finally pain was worsening so came in. Related Data Home Medications ?Medication ?Instructions ?Recorded ?Confirmed ?Last Taken ?Type fluticasone furoate 50 1 inh inhalation Q24H 09/08/24 10/19/24 10/02/24 History mcg/actuation blister powder for inhalation sildenafil 100 mg tablet (Viagra) 100 mg PO DAILY PRN sexual activity 09/08/24 10/19/24 10/02/24 History loratadine 10 mg tablet 10 mg PO Q24H 09/19/24 10/19/24 10/02/24 History Allergies Allergy/AdvReac Type Severity Reaction Status Date / Time No Known Allergies Allergy Verified 10/19/24 13:15 Review of Systems Review of Systems: All systems reviewed & are unremarkable except as noted in HPI and below PMFSH Past Medical History Medical History Chronic ear infection Hemorrhoids Edema, spinal cord Hepatitis Arthritis Allergies Surgical History Surgical History H/O prostate biopsy Family History Family History Grandparent Family history of heart disease in male family member before age 55 Grandparent Heart problem Malignant neoplasm of prostate Social History Social History Smoking status: Never smoker Alcohol intake: current Drinks per week: 2 Alcohol use details: 5-7 drinks per week Substance use: former Substance use type: marijuana Do You Feel Safe in your Home?: Yes Lack of Transportation: No Lack of Food: Never True Current Housing: I Have Housing Concerned About Future Housing: No Difficulty Paying Gas/Electric Bills: YES Difficulty Paying for Meds: No Currently Unemployed: No Education: Bachelor's Degree Difficulty w/ Childcare or Family Care: No Living arrangements: alone Exam Narrative: EXAMINATION OF ORGAN SYSTEMS/BODY AREAS: Constitutional: Vital signs per nursing GENERAL: Diaphoretic HEAD: Normal with no signs of head trauma. EYES: EOMI, conjunctiva normal ENT: Hearing grossly intact LUNGS: Nonlabored breathing. HEART: [Regular rate and rhythm] ABD: Distended, tender suprapubic EXT: Normal range of motion SKIN: [No rashes or lesions.] NEURO: [Alert and oriented x 3. No gross focal sensory or strength deficits.] PSYCH: Normal affect Course Vital Signs Vital signs: Vital Signs Temperature 98.7 F 01/22/25 05:06 Pulse Rate 95 01/22/25 05:06 Respiratory Rate 16 01/22/25 05:06 Blood Pressure 153/109 H 01/22/25 05:06 Pulse Oximetry 100 01/22/25 05:06 Oxygen Delivery Room Air 01/22/25 05:06 Temperature 98.7 F 01/22/25 05:06 Pulse Rate 64 01/22/25 05:45 Respiratory Rate 18 01/22/25 05:45 Blood Pressure 162/92 H 01/22/25 05:45 Pulse Oximetry 97 01/22/25 05:45 Oxygen Delivery Room Air 01/22/25 05:06 MDM - Male Genitourinary MDM Narrative Medical decision making narrative: Patient presents after not being able to urinate for a day, on exam was quite uncomfortable, bladder scan showing more than 1000 cc of urine, with consent, Stone inserted and large output obtained with immediate relief of symptoms. Given duration, I am concerned for possibility of KATHY or post obstructive diuresis; IVF started. Labs obtained. Cr thankfully normal; UA neg. After an hour, patient is not having over diuresis, he has normal labs, he has no further complaints or symptoms, I do feel at this point he can likely be stable for discharge home. He is given strict return precautions, I have let him know to try to keep hydrated, thankfully he actually already has follow-up with Urology in 3 days. Lab Data 01/22/25 05:17 01/22/25 05:17 Labs: Lab Results 01/22/25 Range/Units 05:17 WBC 9.9 (4.5-10.0) K/mm3 RBC 4.85 (4.6-6.20) M/mm3 Hgb 15.0 (14.0-18.0) g/dL Hct 43.9 (42.0-52.0) % MCV 90.5 (80-100) fl MCH 30.9 (26-34) pg MCHC 34.2 (32-36) g/dl RDW 13.2 (11.5-14.5) % Plt Count 212 (150-375) k/mm3 MPV 9.1 (7.4-10.4) fl Immature Gran % (Auto) 0.3 (0-0.5) % Neut % (Auto) 74.1 H (45.5-73.1) % Lymph % (Auto) 16.2 L (18.3-44.2) % Bonner % (Auto) 9.0 H (2.6-8.5) % Eos % (Auto) 0.1 (0-4.4) % Baso % (Auto) 0.3 (0.2-1.2) % Lymph # (Auto) 1.61 (0.9-3.2) K/mm3 Bonner # (Auto) 0.9 H (0.1-0.6) K/mm3 Eos # (Auto) 0.0 (0-0.3) K/mm3 Baso # (Auto) 0.0 (0.0-0.1) K/mm3 Abs Immat Gran (auto) 0.03 (0.00-0.031) K/mm3 Absolute Neuts (auto) 7.4 H (1.3-6.7) K/mm3 Absolute Nucleated RBC 0.000 (0.0-0.012) K/mm3 Nucleated RBC % 0.0 (0.0-0.2) % Sodium 139 (137-145) mmol/L Potassium 3.5 (3.4-5.0) mmol/L Chloride 105 (98-107) mmol/L Carbon Dioxide 23 (22-30) mmol/L Anion Gap 11 (4-12) mmol/L BUN 15 (9-20) mg/dL Creatinine 0.88 (0.7-1.3) mg/dL Estim Creat Clear Calc 90 ml/min Estimated GFR > 60 (59 - ) Glucose 145 H (65-110) mg/dL Calcium 9.3 (8.4-10.2) mg/dL Total Bilirubin 1.3 (0.2-1.3) mg/dL AST 46 (17-59) U/L ALT 47 (6-50) U/L Alkaline Phosphatase 103 (38-126) U/L Total Protein 7.7 (6.3-8.2) g/dL Albumin 4.5 (3.5-5.1) g/dL Urine Color Yellow (Yellow) Urine Appearance Clear (Clear) Urine pH 5.0 (5.0-9.0) Ur Specific [place] 1.015 (1.001-1.035) Urine Protein Negative (Negative) mg/dL Urine Glucose (UA) Negative (Negative) mg/dL Urine Ketones Negative (Negative) mg/dL Ur Blood (Man) Negative (Negative) Urine Nitrate Negative (Negative) Urine Bilirubin Negative (Negative) Urine Urobilinogen 0.2 (<2.0) mg/dL Leukocyte Esterase Rfl Negative (Negative) EVA/UL Discharge Plan Discharge Clinical Impression: Acute urinary retention Patient Disposition: Home Condition: Stable Instructions: Urinary Retention in Men (ED), Stone Catheter Placement and Care (ED) Additional Instructions: Please follow up with your urologist as scheduled; make sure to keep hydrated, if you start having any concerning issues such as if you start having a large volume of urine and are feeling dehydrated, or start having a lot of pain again or the Stone is not draining, come back to the hospital. Patient Language: Kinyarwanda Prescriptions: New tamsulosin [Flomax] 0.4 mg capsule 0.4 mg PO DAILY Qty: 14 0RF No Action fluticasone furoate 50 mcg/actuation blister with device 1 inh inhalation Q24H sildenafil [Viagra] 100 mg tablet 100 mg PO DAILY PRN (Reason: sexual activity) Rx Instructions: administer 30 minutes to 4 hours before activity loratadine 10 mg tablet 10 mg PO Q24H atorvastatin 40 mg tablet 40 mg PO DAILY Qty: 90 1RF amitriptyline 50 mg tablet See Rx Instructions .ROUTE .COMPLEX Qty: 90 0RF Dose Instruction: TAKE 1 TABLET BY MOUTH EVERY DAY AT BEDTIME Rx Instructions: TAKE 1 TABLET BY MOUTH EVERY DAY AT BEDTIME losartan 100 mg tablet 100 mg PO DAILY Qty: 90 1RF Follow-up/Referrals: Steph Rivero DO [Primary Care Provider] -
[2025-01-22 05:34] LABS: Alanine Aminotransferase 47 U/L (6-50); Albumin Level 4.5 g/dL (3.5-5.1); Alkaline Phosphatase 103 U/L (38-126); Anion Gap 11 mmol/L (4-12); Aspartate Amino Transferase 46 U/L (17-59); Bilirubin,Total 1.3 mg/dL (0.2-1.3); Blood Urea Nitrogen 15 mg/dL (9-20); Calcium 9.3 mg/dL (8.4-10.2); Carbon Dioxide 23 mmol/L (22-30); Chloride 105 mmol/L (98-107); Estimated CRCL calculation 90 ml/min; Estimated Glomerular Filt Rate > 60; Glucose 145 mg/dL (65-110); Potassium 3.5 mmol/L (3.4-5.0); Sodium 139 mmol/L (137-145); Total Protein 7.7 g/dL (6.3-8.2)
--- OUTSIDE RECORDS SUMMARY | 2025-01-22 05:35 | XMS_ITS | Encounter Summary ---
Author Organization [facility] Address [address] [place] [address] Care Team Providers Care Waste Elimination Name Role Phone Stephan Odell DO Primary Care Provider Reason for Visit * Reason Comments Refill Request Encounter Details Date Type Department Care Team (Late st Contact Info) Description 05/26/2018 Refill [facility] [address] [place] [address] Davy Cary MD [address] [place] [id number] Refill Request Social History Tobacco Use Types Packs/Day Years Used Date Smoking Tobacco: Former Cigarettes Q uit: 08/10/2013 Smokeless Tobacco: Never Alcohol Use Standard Drinks/Week Comments No 0 (1 standard drink = 0.6 oz pur e alcohol) Sex and Gender Information Value Date Recorded Sex Assigned at Not on file Legal Sex Male 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
--- OUTSIDE RECORDS SUMMARY | 2025-01-22 05:35 | XMS_ITS | Clinical Summary ---
Author Organization [facility] Address [address] [place] [address] Care Team Providers Care Guide Changer Name Role Phone Stephan Odell Primary Care Provider Source Comments [facility],non-owned Affiliates and Associated Physician Practices is amultiple site organization consisting of ambulatory clinics and hospital sitesin [place], [place], [place] and [place]. This disclosure is being madepursuant to the Care Everywhere program and may not contain all information available regarding this patient. 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 Gender Identity Not on file Sexual Orientation Not on file Last Filed Vital Signs Vital Sign Reading Time Taken Comments Blood Pressure 120/75 07/08/2021 9:48 AM WAREHOUSE ADMINISTRATIVE ASSISTANT Pulse 59 07/08/2021 9:48 AM WAREHOUSE ADMINISTRATIVE ASSISTANT Temperature 36.2 C (97.2 F) 10/10/2019 10:09 AM WAREHOUSE ADMINISTRATIVE ASSISTANT Respiratory Rate 14 05/03/2018 3:18 PM CDT Oxygen Saturation 95% 07/08/2021 9:48 AM WAREHOUSE ADMINISTRATIVE ASSISTANT Inhaled Oxygen Concentration - - Weight 95.7 kg (211 lb) 07/08/2021 9:48 AM WAREHOUSE ADMINISTRATIVE ASSISTANT Height 180.3 cm (5' 11) 07/08/2021 9:48 AM WAREHOUSE ADMINISTRATIVE ASSISTANT Body Mass Index 29.43 07/08/2021 9:48 AM WAREHOUSE ADMINISTRATIVE ASSISTANT Plan of Treatment Health Maintenance Due Date [...] Detected Not Detected 05/07/2018 8:04 AM CDT [facility] Blood BLOOD SPECIMEN / Unknown Lab Venipuncture / Unknown 05/03/2018 4:13 PM CDT 05/03/2018 4:17 PM CDT Narrative [facility] - 05/07/2018 8:04 AM CDT The Hepatitis C viral (HCV) RNA analysis utilized a serum sample, real-time reverse field supervisor PCR, and is reported as Not Detected, [...] the isolation of HCV RNA with reverse field supervisor of genomic HCV RNA followed by real-time PCR in the presence of an unrelated RNA internal control. The internal control ensures that RNA is isolated, and that no general significant inhibitors of the RT-PCR process are present. The analysis was performed using a U.S. FDA approved test methodology (InfoNow Real Time HCV). Sarah Christian MEDICAL OFFICE SECRETARY-KRAFT DIGESTER OPERATOR LAB - CHEMISTRY MORENO HATCH Final Result Performing Organization Address City/State/[facility] Co de Phone Number [facility] [address] [phone] from Last 3 Months or Most Recently Relevant to Health Maintenance Insurance [place] [address] UHC [place] [address] Care Teams Guide Changer Relationship Specialty Start Date End Date Stephan Odell DO PCP - General 05/25/17
--- OUTSIDE RECORDS SUMMARY | 2025-01-22 05:35 | XMS_ITS | Clinical Summary ---
Author Organization [facility] Address [address], [facility] [address] [place] [address] Phone Care Team Providers Care Long Line Teamster Name Role Phone Sergio Caballero MD Primary [...] Type Department Care Team Description 01/18/2025 Telephone [facility] [address] [place] [address] Raymond Estevez MD 12/29/2024 Telephone [facility] [address] [place] [address] Augusto Brown, MANUFACTURING TEAM MEMBER, MINE CAPTAIN from Last 3 Months Family History Relation [...] PSA 7.03(H) 0.00 - 4.00 ng/mL CANCER ELECTRIC CRANE OPERATOR [facility] Comment: Jg Paramagnetic Particle Chemiluminescent Immunoassay Method Blood 05/06/2023 9:18 AM CDT Narrative CANCER ELECTRIC CRANE OPERATOR [facility] - 05/06/2023 3:08 PM CDT Release to patient->Immediate us Tomas Mullins MD CHEMISTRY ORDERABLES Final Resul t CANCER ELECTRIC CRANE OPERATOR [facility] [place] [address], [place] [phone] from Last 3 Months or Most Recently Relevant to Health Maintenance Insurance MEDICARE [place]ICAID [place] Care Teams Long Line Teamster Relationship Specialty Start Date End Date Sergio Caballero MD PCP - General Family Medicine 04/24/23
--- OUTSIDE RECORDS SUMMARY | 2025-01-22 05:35 | XMS_ITS | Clinical Summary ---
Author Organization [facility] Address [address] [place] [address] Care Team Providers Care Launchman Name Role Phone Sergio Caballero MD Primary Care Provider [phone] Allergies No known active allergies Medications MELOXICAM 15 MG tabletIndications :Thoracic radiculopathy TAKE 1 TABLET BY MOUTH ONCE DAILY. APPOINTMENT WITH NEW PROVIDER NEEDED FOR FUTURE REFILLS. CALL [phone] TO SCHEDULE 30 tablet 0 Active gabapentin 300 MG capsuleIndication s:Thoracic radiculopathy TAKE 2 CAPSULES BY MOUTH THREE TIMES DAILY. PT NEEDS AN APPOINTMENT FOR ADDITIONAL REFILLS 180 capsule 0 Active Active Problems Problem Noted Date Diagnosed Date Thoracic radiculopathy 07/22/2017 Immunizations Immunization Administration Dates Next Due Tdap (Historical Only-select from [email or web address] glass) 11/15/2018 Family History Medical History Relation [...] GENERIC (SCAN ORDER) Routine 10/14/2016 12:00 AM SHOP GIRL HEPATITIS C ANTIBODY Routine 09/24/2016 7:20 AM SHOP GIRL from Last 3 Months or Most Recently Relevant to Health Maintenance Results * COLONOSCOPY (10/14/2016 12:00 AM SHOP GIRL) 10/14/2016 us Documents Scanned SCANNING Final Result [facility] * (ABNORMAL) HEPATITIS C ANTIBODY (09/24/2016 7:20 AM SHOP GIRL) HEPATITIS C AB REACTIVE TESTING PERFORMED AT [address] [address] SPECIMEN RESPUN RESULTS CONFIRMED-KEE T REPEATED (A) NR [facility] TO EPIC CONVERSION 09/24/2016 7:20 AM SHOP GIRL 09/24/2016 7:20 AM SHOP GIRL Narrative [employer] TO EPIC CONVERSION - 09/25/2016 7:38 PM SHOP GIRL Result Communication: No patient communication needed at this time us Stephan Odell DO LABORATORY Final Result [employer] TO EPIC CONVERSION from Last 3 Months or Most Recently Relevant to Health Maintenance Insurance [place] Care Teams Launchman Relationship Specialty Start Date End Date Sergio Caballero MD PCP - General FAMILY PRACTICE 12/14/19
[2025-01-22] MEDS: LACTATED RINGERS 1,000 ML 999 ML IV CONT (05:40)
[2025-01-22 05:45] VITALS: BP 162/92; PULSE 64; RESP 18; O2SAT 97
[2025-01-22 06:29] VITALS: BP 159/84; PULSE 63; RESP 19; O2SAT 97
--- NOTE | 2025-01-22 06:30 | PC.NURSE ---
patient was educated about leg bag use. pt was able to correctly demonstrate correct application and use of urinary leg bag.
== END 2025-01-22 07:03 | disposition home or self-care (01) ==
PROVIDERS: Emergency Provider Emergency Medicine; PCP Family Medicine
DX: R33.9 Retention of urine, unspecified (principal); C61 Malignant neoplasm of prostate; M19.90 Unspecified osteoarthritis, unspecified site; Z79.899 Other long term (current) drug therapy
CPT/HCPCS: 36415; 51702; 80053; 81003; 85025; 96360; 99283; J7120

== ENCOUNTER → 2025-05-15 10:27 | Outpatient (REF) | payer MEDICARE, MEDICAID, SELFPAY ==
--- NOTE | 2025-05-15 10:27 | S_PTH ---
PATIENT: Kenrick Wyatt II LOC: ANHLAB #:[id number] AGE/SX: 70/M ROOM: RE05/15/[address]: Ramila Tobias PA-C : 1955 BED: DIS: SPEC #: [id number] RECD: 05/15/25 12:09 STATUS: SAM REClaudia #: [id number] OTILIA: 05/15/25 10:[address]: Ramila Tobias DEPT: [facility] Surgical RECD BY: Hannah Das ENTERED: 05/15/25 12:10 SP TYPE: Surgical OTHR DR: Steph Rivero DO Tissues: A - Cyst Procedures: Hematoxylin and Eosin Stain Gross and Microscopic Level 4
--- OUTSIDE RECORDS SUMMARY | 2025-05-15 11:45 | XMS_ITS | Encounter Summary ---
Author Organization [facility] Health Address [address] [place] [address] Care Team Providers Care Soccer Commentator Name Role Phone Stephan Odell DO Primary Care Provider Reason for Visit * Reason Comments Refill Request Encounter Details Date Type Department Care Team (Late st Contact Info) Description 05/26/2018 Refill [facility] [address] [place] [address] Davy Cary MD [address] [place] [id number] Refill Request Social History Tobacco Use Types Packs/Day Years Used Date Smoking Tobacco: Former Cigarettes Q uit: 08/10/2013 Smokeless Tobacco: Never Alcohol Use Standard Drinks/Week Comments No 0 (1 standard drink = 0.6 oz pur e alcohol) Sex and Gender Information Value Date Recorded Sex Assigned at Not on file 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
--- OUTSIDE RECORDS SUMMARY | 2025-05-15 11:45 | XMS_ITS | Clinical Summary ---
Author Organization [facility] Address [address], [facility] [address] [place] [address] Phone Care Team Providers Care Pest Control Specialist Name Role Phone Sergio Caballero MD [...] 2007 Zoster Immunization (1 of 2) 2007 Medicare Initial AWV [id number] 01/08/2023 Influenza Immunization (#1) 2025 SARS-COV-2 Immunization ( season) 2025 08/12/2021, 01/07/2021, 12/09/2020 Respiratory Syncytial Virus (RSV) [...] PSA 7.03(H) 0.00 - 4.00 ng/mL [facility] CARBON LAMP CLEANER [facility] Comment: Jg Paramagnetic Particle Chemiluminescent Immunoassay Method Blood 05/06/2023 9:18 AM CDT Narrative [facility]ER CARBON LAMP CLEANER [facility] - 05/06/2023 3:08 PM CDT Release to patient->Immediate us Tomas Mullins MD CHEMISTRY ORDERABLES Final Resul t [facility] CARBON LAMP CLEANER [facility] [place] [address], from Last 3 Months or Most Recently Relevant to Health Maintenance Insurance MEDICARE [place]ICAID [place] Care Teams Pest Control Specialist Relationship Specialty Start Date End Date Sergio Caballero MD PCP - General Family Medicine 04/24/23
--- OUTSIDE RECORDS SUMMARY | 2025-05-15 11:45 | XMS_ITS | Clinical Summary ---
Author Organization [facility] Address [address] [place] [address] Care Team Providers Care Boom Man Name Role Phone Stephan Odell Primary Care Provider Source Comments [facility],non-owned Affiliates and Associated Physician Practices is amultiple site organization consisting of ambulatory clinics and hospital sitesin [place], [place], [place] and [place]. This disclosure is being madepursuant to the Care Everywhere program and may not contain all information available regarding this patient. Last updated 18.[facility] Allergies No known active allergies Medications * [...] problem 05/03/2018 Overview (05/12/2018): U/s done at [facility] within normallimits Primary osteoarthritis of both hips [...] on file Legal Sex Male 5:12 PM INCUBATOR OPERATOR Gender Identity Not on file Sexual Orientation Not on file Last Filed Vital Signs Vital Sign Reading Time Taken Comments Blood Pressure 120/75 07/08/2021 9:48 AM INCUBATOR OPERATOR Pulse 59 07/08/2021 9:48 AM INCUBATOR OPERATOR Temperature 36.2 C (97.2 F) 10/10/2019 10:09 AM INCUBATOR OPERATOR Respiratory Rate 14 05/03/2018 3:18 PM CDT Oxygen Saturation 95% 07/08/2021 9:48 AM INCUBATOR OPERATOR Inhaled Oxygen Concentration - - Weight 95.7 kg (211 lb) 07/08/2021 9:48 AM INCUBATOR OPERATOR Height 180.3 cm (5' 11) 07/08/2021 9:48 AM INCUBATOR OPERATOR Body Mass Index 29.43 07/08/2021 9:48 AM INCUBATOR OPERATOR Plan of Treatment Health Maintenance Due [...] AAA SCREENING 2022 LIPID TESTING 11/30/2023 11/29/2018 DEPRESSION SCREENING 08/10/2024 MEDICARE AWV CALENDAR YEAR 2024 COVID-19 VACCINE (1 - 2023-2 5 season) 2025 INFLUENZA VACCINE (#1) 2025 HEPATITIS C SCREENING Completed 05/03/2018 , [...] Detected Not Detected 05/07/2018 8:04 AM CDT [facility] Blood BLOOD SPECIMEN / Unknown Lab Venipuncture / Unknown 05/03/2018 4:13 PM CDT 05/03/2018 4:17 PM CDT Narrative [facility] - 05/07/2018 8:04 AM CDT The Hepatitis C viral (HCV) RNA analysis utilized a serum sample, real-time reverse blueprint assembler PCR, and is reported as Not Detected, [...] the isolation of HCV RNA with reverse blueprint assembler of genomic HCV RNA followed by real-time PCR in the presence of an unrelated RNA internal control. The internal control ensures that RNA is isolated, and that no general significant inhibitors of the RT-PCR process are present. The analysis was performed using a U.S. FDA approved test methodology (NPC III Real Time HCV). Sarah Christian BARREL RIFLER BUTTON-ETL ANALYST DEVELOPER LAB - CHEMISTRY MORENO HATCH Final Result Performing Organization Address City/State/[facility] Co de Phone Number [facility] [address] [phone] from Last 3 Months or Most Recently Relevant to Health Maintenance Insurance MEDICAID - [place] UHC MANAGED MEDICARE ADV Care Teams Boom Man Relationship Specialty Start Date End Date Stephan Odell DO PCP - General 05/25/17
--- OUTSIDE RECORDS SUMMARY | 2025-05-15 11:45 | XMS_ITS | Clinical Summary ---
Author Organization [facility] Address [facility] [place] [address] Care Team Providers Care Java Programmer Name Role Phone Mat Sebmeera Aimee MCLEAN Primary Care Provider [phone] Allergies No known active allergies Medications losartan (COZAAR) 100 MG tablet Take 1 tablet (100 mg total) by mouth daily. Active atorvastatin (LIPITOR) 40 MG tablet Take 1 tablet (40 mg total) by mouth nightly at bedtime. Active Multiple Vitamin (MULTIVITAMIN ADULT OR) Take 1 tablet by mouth daily. Active Misc Natural Products (PROSTATE OR) Take 1 tablet by mouth daily. Active amitriptyline (ELAVIL) 50 MG tablet Take 1 tablet (50 mg total) by mouth nightly at bedtime. 02/12/2025 Active fluticasone propionate (FLONASE) 50 MCG/ACT nasal spray 2 sprays by Each Nostril route 2 (two) times daily. 08/09/2024 Active lisinopril (PRINIVIL) 20 MG tablet Take 1 tablet (20 mg total) by mouth daily. 08/01/2024 Active loratadine (CLARITIN) 10 MG tablet Take 1 tablet (10 mg total) by mouth every morning. FOR 14 DAYS 11/07/2024 Active sildenafil (VIAGRA) 100 MG tablet Take 1 tablet (100 mg total) by mouth as needed. 12/04/2024 Active Active Problems Problem Noted Date Diagnosed Date Thoracic radiculopathy 07/22/2017 Encounters Date Type Department Care Team Description 02/23/2025 9:11 AM CDT Anesthesia Event [facility] [place] [address] Carlos Unger MD Jackson, Samantha Rae, MANAGER PATIENT 02/23/2025 8:53 AM CDT - 02/23/2025 10:16 AM CDT Surgery [facility] [place] [address] Tru Sandoval MD GREENLIGHT LASER VAPORIZATION OF THE PROSTATE 02/23/2025 6:30 AM CDT - 02/23/2025 12:56 PM CDT Hospital Encounter [facility] [place] [address] Tru Sandoval MD Discharge Disposition: Home or Self Care (Routine Discharge) 02/23/2025 Travel 02/15/2025 Travel from Last 3 Months Immunizations Immunization Administration Dates Next Due Tdap (Historical Only-select from magnify glass) 11/15/2018 Family History Medical History Relation Comments Prostate Cancer Paternal Grandfather Heart Attack Paternal Grandmother Relation Status Comments Father Alive Paternal Grandfather Paternal Grandmother Social History Tobacco Use Types Packs/Day Years Used Date Smoking Tobacco: Never Smokeless Tobacco: Never Alcohol Use Standard Drinks/Week Comments No 0 (1 standard drink = 0.6 oz pur e alcohol) not for many many years. Sex and Gender Information Value Date Recorded Sex Assigned at Not on file Legal Sex Male 7:08 PM CDT Gender Identity Not on file Sexual Orientation Not on file Last Filed Vital Signs Vital Sign Reading Time Taken Comments Blood Pressure 176/98 02/23/2025 12:50 PM CDT Pulse 74 02/23/2025 12:50 PM CDT Temperature 36.4 C (97.5 F) 02/23/2025 12:50 PM CDT Respiratory Rate 16 02/23/2025 12:5 0 PM CDT Oxygen Saturation 92% 02/23/2025 12: 50 PM CDT Inhaled Oxygen Concentration - - Weight 111.4 kg (245 lb 9.5 oz) 02/23/2025 7:48 AM CDT Height 179.1 cm (5' 10.5) 02/15/2025 3:34 PM CD T Body Mass Index 34.74 02/15/2025 3:34 PM CDT Plan of Treatment Health Maintenance Due Date Last Done Comments Pneumococcal Vaccine: 50+ Years (1 of 1 - PCV) 2007 Zoster Vaccines (1 of 2) 2007 Annual Medicare Wellness Visit 2022 COVID-19 Vaccine ( - season) 2025 08/12/2021, 01/07/2021, 12/09/2020 Influenza Adult (#1) 2025 Colorectal Cancer Screening Colonoscopy (10 Years) 10/15/2026 10/14/2016 DTaP, Tdap and Td Vaccines (2 - Td or Tdap) 11/15/2028 11/15/2018 RSV Immunization or 60+ Years (1 - 1-dose 75+ series) 01/24/2032 Hepatitis C Completed 05/03/2018, 03/11, 04/05/2018, Additional history exists Meningococcal B Vaccine Aged Out No l onger eligible based on patient's age to complete this topic Meningococcal Vaccine Aged Out No yosef rakesh eligible based on patient's age to complete this topic RSV Immunizations Under 20 Months Aged Out No longer eligible based on patient's age to complete this topic Procedures Procedure Name Priority Date/Time Associated Diagnosis Comments CONTACT LASER SURGERY OF PROSTATE 02/23/2025 9:10 AM CDT RETENTION OF URINE C61; Z19.1; R33.9 Case Notes SCHED BY FAX ON 02/08/25 [facility] PHONE ASSESS Special Needs [facility] # [id number] COLONOSCOPY GENERIC (SCAN ORDER) Routine 10/14/2016 12:00 AM MATERIAL LISTER HEPATITIS C ANTIBODY Routine 09/24/2016 7:20 AM MATERIAL LISTER from Last 3 Months or Most Recently Relevant to Health Maintenance Results * COLONOSCOPY (10/14/2016 12:00 AM MATERIAL LISTER) 10/14/2016 us Documents Scanned SCANNING Final Result [facility] * (ABNORMAL) HEPATITIS C ANTIBODY (09/24/2016 7:20 AM MATERIAL LISTER) HEPATITIS C AB REACTIVE TESTING PERFORMED AT [facility] [address] [place] [address] SPECIMEN RESPUN RESULTS CONFIRMED-KEE T REPEATED (A) NR [facility] TO EPIC CONVERSION 09/24/2016 7:20 AM MATERIAL LISTER 09/24/2016 7:20 AM MATERIAL LISTER Narrative [facility] TO EPIC CONVERSION - 09/25/2016 7:38 PM MATERIAL LISTER Result Communication: No patient communication needed at this time Stephan Odell DO LABORATORY Final Result [facility] TO EPIC CONVERSION from Last 3 Months or Most Recently Relevant to Health Maintenance Insurance [facility] MEDICARE MEDICAID Care Teams Java Programmer Relationship Specialty Start Date End Date Steph Rivero DO [address] [place] [address] PCP - General FAMILY PRACTICE 02/23/25
== END ==
LOC: ANHLAB 10:27
PROVIDERS: PCP Family Medicine; Visit Provider Physician Assistant Surgical
DX: L72.8 Other follicular cysts of the skin and subcutaneous tissue (principal)
CPT/HCPCS: 88305